=== PATIENT | female | born 1945 | race Caucasian/White ===

== ENCOUNTER 2016-12-06 10:21 | Emergency (ER) | payer OTHER ==
--- NOTE | 2016-12-06 10:47 | PD ---
HPI Chief Complaint: fever Time Seen by Provider: 10:24 Travel History International Travel<30 days: No Contact w/Intl Traveler<30days: No Traveled to known affect area: No History of Present Illness HPI The patient was seen and examined in the presence of the nurse. This patient presents to the ER for evaluation of fever. She has metastatic breast cancer diffusely spread to a variety of bony structures including ribs and spine and is currently on chemotherapy. Her last dose was 2 days ago. She woke up at 4 AM and felt warm and took her temperature and had a fever. Currently temp is 102.4. She denies cough or shortness of breath or diarrhea or vomiting or abdominal pain or skin complaints. She has no idea with the fever came from. She had a fever one month ago and took one dose of her prescribed antibiotic and quit taking it after that. Symptoms severity is moderate. Duration is 6 hours. No alleviating factors. Fever likely exacerbated by the fact she is immunocompromised on chemotherapy. PFSH Social History Alcohol Use: No Tobacco Use: No Substance Use: No Allergies-Medications (Allergen,Severity, Reaction): Coded Allergies: No Known Allergies (Unverified , 12/06/16) Reported Meds & Prescriptions Reported Meds & Active Scripts Active Zofran (Ondansetron HCl) 4 Mg Tab 4 Mg PO Q6HR PRN Reported Oxycodone (Oxycodone HCl) 5 Mg Cap 5 Mg PO Q8H PRN Omeprazole 20 Mg Tab 20 Mg PO DAILY Levothyroxine (Levothyroxine Sodium) 88 Mcg Tab 88 Mcg PO DAILY Pravastatin 10 Mg Tab 10 Mg PO DAILY Review of Systems General / Constitutional: Positive: Fever Eyes: No: Visual changes HENT: No: Headaches Cardiovascular: No: Chest Pain or Discomfort Respiratory: No: Shortness of Breath Gastrointestinal: No: Abdominal Pain Genitourinary: No: Dysuria Musculoskeletal: No: Pain Skin: No Rash Neurologic: No: Weakness Psychiatric: No: Depression Endocrine: No: Polydipsia Hematologic/Lymphatic: No: Easy Bruising Physical Exam Narrative GENERAL: Well-nourished, well-developed patient in no apparent distress. SKIN: Focused skin assessment reveals no rash and nodules. Skin is Warm and dry. HEAD: Atraumatic. Normocephalic. EYES: Pupils equal and round. No scleral icterus. No injection or drainage. ENT: No nasal bleeding or discharge. Mucous membranes pink and moist. Throat clear NECK: Trachea midline. No JVD. No meningeal signs CARDIOVASCULAR: Regular rate and rhythm. No murmur appreciated. RESPIRATORY: No accessory muscle use. Clear to auscultation. Breath sounds equal bilaterally. GASTROINTESTINAL: Abdomen soft, non-tender, nondistended. Hepatic and splenic margins not palpable. MUSCULOSKELETAL: No obvious deformities. No clubbing. No cyanosis. No edema. NEUROLOGICAL: Awake and alert. No obvious cranial nerve deficits. Motor grossly within normal limits. Normal speech. PSYCHIATRIC: Appropriate mood and affect; insight and judgment normal. Data Data Last Documented VS Vital Signs Date Time Temp Pulse Resp B/P (MAP) Pulse Ox O2 Delivery O2 Flow Rate FiO2 12/06/16 11:26 102.7 101 18 109/67 (81) 98 Room Air Orders Orders Complete Blood Count With Diff (12/06/16 10:35) Comprehensive Metabolic Panel (12/06/16 10:35) Urinalysis - C+S If Indicated (12/06/16 10:35) Blood Culture (12/06/16 10:35) Chest, Single Ap (12/06/16 10:35) Ecg Monitoring (12/06/16 10:35) Iv Access Insert/Monitor (12/06/16 10:35) Oximetry (12/06/16 10:35) Acetaminophen (Tylenol) (12/06/16 11:00) Ceftazidime Inj (Fortaz Inj) (12/06/16 11:00) Labs Laboratory Tests Test 12/06/16 10:50 White Blood Count 8.6 TH/MM3 Red Blood Count 3.53 MIL/MM3 Hemoglobin 12.1 GM/DL Hematocrit 35.3 % Mean Corpuscular Volume 100.1 FL Mean Corpuscular Hemoglobin 34.2 PG Mean Corpuscular Hemoglobin Concent 34.1 % Red Cell Distribution Width 14.8 % Platelet Count 191 TH/MM3 Mean Platelet Volume 7.3 FL Neutrophils (%) (Auto) 90.6 % Lymphocytes (%) (Auto) 5.5 % Monocytes (%) (Auto) 2.3 % Eosinophils (%) (Auto) 0.2 % Basophils (%) (Auto) 1.4 % Neutrophils # (Auto) 7.8 TH/MM3 Lymphocytes # (Auto) 0.5 TH/MM3 Monocytes # (Auto) 0.2 TH/MM3 Eosinophils # (Auto) 0.0 TH/MM3 Basophils # (Auto) 0.1 TH/MM3 CBC Comment AUTO DIFF Differential Comment AUTO DIFF CONFIRMED Urine Collection Type CLEAN CATCH Urine Color YELLOW Urine Turbidity CLEAR Urine pH 7.5 Urine Specific [place] 1.016 Urine Protein NEG mg/dL Urine Glucose (UA) NEG mg/dL Urine Ketones NEG mg/dL Urine Occult Blood TRACE Urine Nitrite NEG Urine Bilirubin NEG Urine Leukocyte Esterase NEG Urine RBC 0-3 /hpf Urine WBC 0-2 /hpf Urine Squamous Epithelial Cells 0-5 /hpf Microscopic Urinalysis Comment CULT NOT INDICATED Urine Collection Time 10:50 Blood Urea Nitrogen 16 MG/DL Creatinine 0.74 MG/DL Random Glucose 117 MG/DL Total Protein 7.5 GM/DL Albumin 3.3 GM/DL Calcium Level 9.0 MG/DL Alkaline Phosphatase 124 U/L Aspartate Amino Transf (AST/SGOT) 54 U/L Alanine Aminotransferase (ALT/SGPT) 29 U/L Total Bilirubin 0.6 MG/DL Sodium Level 133 MEQ/L Potassium Level 3.6 MEQ/L Chloride Level 96 MEQ/L Carbon Dioxide Level 28.8 MEQ/L Anion Gap 8 MEQ/L Estimat Glomerular Filtration Rate 77 ML/MIN [facility] Medical Decision Making Medical Screen Exam Complete: Yes Emergency Medical Condition: Yes Medical Record Reviewed: Yes Differential Diagnosis Neutropenia, pneumonia, UTI, flu syndrome Narrative Course I have reviewed the patient's electronic medical record.I reviewed her oncologist note from October 2016 IV placed Blood culture obtained CBC is normal with white count of 8.6, no neutropenia Metabolic profile is normal Urinalysis is clean I reviewed her chest x-ray which is normal Extended cardiac monitoring reveals sinus rhythm without ectopy Initial blood pressure normal and temp 102.7 I gave her dose of Tylenol Dose of ceftaz given On recheck the patient is feeling well and basically is asymptomatic other than fever. I reviewed with her oncologist in detail. She is stable for outpatient follow-up. He wants her to be on 5 days of Levaquin. I also wrote her some Zofran just in case. Diagnosis Primary Impression: Fever Qualified Codes: R50.9 - Fever, unspecified Additional Impression: Palliative chemotherapy underway Additional Instructions: The patient was advised to follow up with their physician and return if they worsen. Med/Other Pt SpecificInfo: Prescription(s) given Scripts Ondansetron (Zofran) 4 Mg Tab 4 MG PO Q6HR Y for NAUSEA OR VOMITING, #12 TAB 0 Refills Prov: Azar Hamlin MD 12/06/16 Disposition: 01 DISCHARGE HOME Condition: Stable Azar Hamlin MD Dec 06, 2016 10:47
[2016-12-06 10:57] VITALS: BP 159/72; PULSE 93; RESP 16; TEMP 102.7; O2SAT 98
[2016-12-06 10:59] VITALS: O2SAT 98
[2016-12-06 10:59] LABS: GLUCOSE,URINE NEG (NEG); KETONE, URINE NEG (NEG); NITRITE,URINE NEG (NEG); PH, URINE 7.5 (5.0-8.5)
[2016-12-06] MEDS ORDERED: cefTAZidime INJ 2,000 MG in SODIUM CHLORIDE 0.9% INJ 100 ML IV ONE (11:00)
[2016-12-06] MEDS ORDERED: ACETAMINOPHEN 500 MG CPLT PO ONE (11:00)
[2016-12-06 11:05] LABS: BLOOD, URINE TRACE (NEG); METHOD OF COLLECTION CLEAN CATCH
[2016-12-06 11:06] LABS: RBC, URINE 0-3 /hpf (0-3); SQUAMOUS EPITHELIAL CELL URINE 0-5 /hpf (0-5); URINE COLOR YELLOW (YELLW/STRAW); WBC, URINE 0-2 /hpf (0-5)
[2016-12-06] MEDS ORDERED: OMEP20TA PO (11:06)
[2016-12-06] MEDS ORDERED: OXYC1CAP PO (11:06)
[2016-12-06] MEDS ORDERED: LEVO88TA2 PO (11:06)
[2016-12-06] MEDS ORDERED: PRAV10TA PO (11:06)
[2016-12-06 11:07] LABS: COMMENT (UR) CULT NOT INDICATED; CULTURE IF INDICATED CULT NOT INDICATED
[2016-12-06 11:08] LABS: CHLORIDE 96 MEQ/L (98-107); POTASSIUM 3.6 MEQ/L (3.5-5.1); SODIUM (NA) 133 MEQ/L (136-145)
[2016-12-06 11:09] LABS: AUTOMATED NEUTROPHIL # 7.8 TH/MM3 (1.8-7.7); BASOPHIL # 0.1 TH/MM3 (0-0.2); BASOPHIL % 1.4 % (0.0-2.0); EOSINOPHIL % 0.2 % (0.0-4.0); HEMATOCRIT 35.3 % (35.0-46.0); LYMPH % 5.5 % (9.0-44.0); LYMPHOCYTE # 0.5 TH/MM3 (1.0-4.8); MEAN CELL VOLUME 100.1 FL (80.0-100.0); MEAN CORPUSCULAR HEMOGLOBIN 34.2 PG (27.0-34.0); MEAN CORPUSCULAR HGB CONC 34.1 % (32.0-36.0); MONO % 2.3 % (0.0-8.0); NEUT % 90.6 % (16.0-70.0); PLATELET COUNT 191 TH/MM3 (150-450); RED BLOOD COUNT 3.53 MIL/MM3 (4.00-5.30); RED CELL DISTRIBUTION WIDTH 14.8 % (11.6-17.2); WHITE BLOOD COUNT 8.6 TH/MM3 (4.0-11.0)
[2016-12-06 11:10] LABS: HEMO FLAGS AUTO DIFF
[2016-12-06 11:11] LABS: ANION GAP 8 MEQ/L (5-15); BICARBONATE 28.8 MEQ/L (21.0-32.0)
[2016-12-06 11:12] LABS: BLOOD UREA NITROGEN 16 MG/DL (7-18)
[2016-12-06 11:14] LABS: ALT (GPT) 29 U/L (10-53); AST (GOT) 54 U/L (15-37)
[2016-12-06 11:15] LABS: GLOMERULAR FILTRATION RATE 77 ML/MIN (>89)
[2016-12-06 11:16] LABS: TOTAL BILIRUBIN ADULT 0.6 MG/DL (0.2-1.0)
[2016-12-06 11:17] LABS: ALKALINE PHOSPHATASE 124 U/L (45-117)
[2016-12-06 11:26] VITALS: BP 109/67; PULSE 101; RESP 18; TEMP 102.7; O2SAT 98
--- NOTE | 2016-12-06 11:26 | RADRPT ---
EXAM DATE/TIME: 12/06/2016 11:12 [facility] COMPARISON: No previous studies available for comparison. INDICATIONS : Fever, chest pains, today MEDICAL HISTORY : Carcinoma, breast. Carcinoma, lung. SURGICAL HISTORY : None. ENCOUNTER: Initial ACUITY: 1 day PAIN SCORE: 4/10 LOCATION: Bilateral chest FINDINGS: A single view of the chest demonstrates the lungs to be symmetrically aerated without evidence of mas s, infiltrate or effusion. The cardiomediastinal contours are unremarkable. There are degenerative c hanges in the shoulders bilaterally. There are surgical clips in the right axilla. CONCLUSION: 1. No acute cardiopulmonary findings. Erich Hodges MD on December 06, 2016 at 11:24 Board Certified Radiologist. This report was verified electronically.
[2016-12-06 11:33] LABS: SCAN/DIFF AUTO DIFF CONFIRMED
[2016-12-06] MEDS ORDERED: ZOFR4TAB PO (12:04)
[2016-12-06] MEDS ORDERED: LEVOFLOXACIN 500 MG TAB PO ONE (12:15)
[2016-12-06 12:38] VITALS: BP 108/60; PULSE 86; RESP 18; TEMP 99.6; O2SAT 98
== END 2016-12-06 12:39 | disposition home or self-care (01) ==
LOC: PHED 10:21
DX: R50.9 Fever, unspecified (principal); C50.919 Malignant neoplasm of unspecified site of unspecified female breast; C79.51 Secondary malignant neoplasm of bone; Z92.21 Personal history of antineoplastic chemotherapy
CPT/HCPCS: 71010; 80053; 81001; 85025; 87040; 96365; 99284; J0713

== ENCOUNTER 2016-12-23 06:29 | Day surgery (SDC) | payer OTHER ==
[~2016-12-23] VITALS: Ht 165.1 cm; Wt 65.5 kg
[~2016-12-23 06:29] MED LIST: LEVO88TA2 PO; OMEP20TA PO; OXYC1CAP PO; PRAV10TA PO; ZOFR4TAB PO
[2016-12-23 06:47] VITALS: BP 141/82; PULSE 88; RESP 18; TEMP 98.1; O2SAT 96
[2016-12-23] MEDS ORDERED: ZOFR4TAB PO (06:51)
[2016-12-23] MEDS ORDERED: VITA1000 PO (06:51)
[2016-12-23] MEDS ORDERED: CALC500T8 PO (06:51)
[2016-12-23] MEDS ORDERED: CYAN1TAB24 PO (06:51)
[2016-12-23] MEDS ORDERED: SODIUM CHLORIDE 0.9% 1000 ML IV SCH (07:00)
[2016-12-23] MEDS ORDERED: POVIDONE IODINE 5% (ANTISEPSIS KIT) 4 APPLICATIONS EACH NARE SCH (07:00)
[2016-12-23] MEDS ORDERED: CHLORHEXIDINE GLUCONATE 2 % 1 PACK (2 CLOTHS) TOPICAL SCH (07:00)
[2016-12-23 08:18] LABS: APTT (PATIENT) 24.8 SEC (24.3-30.1); PROTHROMBIN TIME - PATIENT 10.7 SEC (9.8-11.6)
[2016-12-23] MEDS ORDERED: MIDAZOLAM HCL 2 MG/2 ML VIAL ONE ×2 (08:49→09:14)
[2016-12-23] MEDS: VANCOMYCIN 1000 MG/NS 250 ML - implanted port/tunneled catheter IV SCH ×6 (09:31→10:16)
[2016-12-23] MEDS: ceFAZolin 2 GM PREMIX 50 ML - implanted port/tunneled catheter insertion IV SCH ×2 (09:31→09:32)
[2016-12-23 10:10] VITALS: BP 114/65; PULSE 58; RESP 18; TEMP 98.2; O2SAT 94
--- NOTE | 2016-12-23 10:13 | PD.RAD ---
Post Procedure Progress Note Pre Procedure Diagnosis: (1) Metastatic breast cancer Post Procedure Diagnosis: (1) Metastatic breast cancer Procedure Date: Dec 23, 2016 Supervising Radiologist: Portillo Blake Proceduralist/Assist: Brina Martin RT(R), RT Huma(R) Anesthesia: Local, Analgesia, Conscious Sedation Plan of Activity Patient to Unit: ROPU Patient Condition: Good See PACS Report for procedural detail/treatment Central Venous Access Device Procedure 1 Right Internal Jugular Infusaport Placement single lumen Bahamian: 8 Portillo Blake MD Dec 23, 2016 10:13
[2016-12-23] MEDS ORDERED: SODIUM CHLORIDE 0.9% FLUSH 10 ML FLUSH IVF PRN (10:15)
[2016-12-23 10:25] VITALS: BP 117/71; PULSE 68; RESP 18; O2SAT 94
--- NOTE | 2016-12-23 10:31 | RADRPT ---
EXAM DATE/TIME: 12/23/2016 09:15 [facility] COMPARISON: No previous studies available for comparison. INDICATIONS : Patient with history of metastatic breast cancer in need of [id number]. MEDICAL HISTORY : HTN, HLD, Metastatic ductal carcinoma of the breast with extensive bony metastases, GERD, Hypothyroid ism, Osteonecrosis of anterior portion of mandible, Radiation therapy SURGICAL HISTORY : Right breast lumpectomy, Right axillary lymph node dissection, Right mastectomy, Biopsy of spine, Par tial thyroidectomy, Colonoscopy, Cholecystectomy ENCOUNTER: Initial ACUITY: >1 year PAIN SCORE: 0/10 FLUORO TIME: 3.1 minutes IMAGE SERIES: 1 SEDATION TIME: 45 minutes ACCESS: Left internal jugular vein SEDATION: 1.) 3.5 mg midazolam (Versed) IV 2.) 175 mcg fentanyl (Sublimaze) IV Prophylactic antibiotics were administered with appropriate pre-procedure timing. Vancomycin within 2 hours of procedure, Ancef (or alternative) within 1 hour of procedure. DEVICE: 1. 8 Russian single lumen Smart power port with vortex PROCEDURE : 1. Continuous pulse oximetry and EKG monitoring. 2. Intravenous conscious sedation. 3. Ultrasound guidance for venous access. 4. Fluoroscopic guided implantable central venous port placement. The patient was placed supine. The neck was prepped in sterile fashion. Full sterile technique was u sed, including cap, mask, sterile gloves and gown, and a large sterile sheet. Hand hygiene and 2% ch lorhexidine Betadine was utilized per protocol for cutaneous antisepsis with appropriate dry time for site. Sterile gel and sterile probe cover were utilized for ultrasound guidance. The skin and sub cutaneous tissues were infiltrated with local anesthetic solution. Under direct ultrasound guidance, central venous access was accomplished in the targeted vessel. The ultrasound images depicting access guidance were stored and saved to PACS for permanent record. A s ubcutaneous pocket was created using blunt dissection. The port was introduced to the pocket. The c atheter tubing was fed through a subcutaneous tunnel to the venotomy site. The catheter tubing was c ut to a suitable length and then was introduced through a valved Peel-Away sheath and positioned with catheter tubing tip at the cavo-atrial junction level. The pocket incision was closed with subcutic ular Vicryl suture. Steri-Strips were applied. The port was flushed and locked with heparin solutio n per protocol. Sterile dressing was applied to the site. The patient tolerated the procedure well. Conscious sedation was performed with the prescribed dosages and duration as above in the presence of an independent trained radiology nurse to assist in the monitoring of the patient. EKG and oximetry remained stable throughout the procedure. The patient tolerated the procedure well and there were no complications. The patient was sent to post anesthesia recovery in stable condition. CONCLUSION: Uncomplicated ultrasound and fluoroscopic guided implanted central venous port catheter placement as described in detail above. An 8 Russian Power port was placed. Portillo Blake MD on December 23, 2016 at 10:29 Board Certified Radiologist. This report was verified electronically.
[2016-12-23 10:55] VITALS: BP 120/65; PULSE 67; RESP 18; O2SAT 95
[2016-12-23 11:25] VITALS: BP 120/64; PULSE 63; RESP 16; O2SAT 95
[2016-12-23 11:55] VITALS: BP 117/71; PULSE 65; RESP 18; O2SAT 96
== END 2016-12-23 12:50 | disposition home or self-care (01) ==
LOC: HROP 06:29 → HRIP 06:32 → HROP 12:50
PROVIDERS: ATTEND Internal Medicine Hematology & Oncology
DX: Z45.2 Encounter for adjustment and management of vascular access device (principal); C79.51 Secondary malignant neoplasm of bone; I10 Essential (primary) hypertension; E78.5 Hyperlipidemia, unspecified; E03.9 Hypothyroidism, unspecified; K21.9 Gastro-esophageal reflux disease without esophagitis; Z85.3 Personal history of malignant neoplasm of breast
CPT/HCPCS: 36561; 76937; 77001; 85610; 85730; 99152; 99153; C1769; C1788; C1887; J0690; J1642; J2250; J3010; J3370; J7030; J7050

== ENCOUNTER 2017-04-30 14:49 | Inpatient (IN) | payer OTHER, MEDICAID, MEDICARE ==
[2017-04-30] VITALS (10 sets, daily range): BP systolic 144–171; BP diastolic 67–98; PULSE 67–91; RESP 16–20; TEMP 98.6–98.7; O2SAT 73–99
[~2017-04-30] VITALS: Ht 162.6 cm; Wt 67.2 kg
[~2017-04-30 14:49] MED LIST changes: +CALC500T8 PO; +CYAN1TAB24 PO; -OMEP20TA PO; +OMEP20TA93 PO; +VITA1000 PO
--- NOTE | 2017-04-30 15:55 | PD ---
HPI Chief Complaint: Fall Time Seen by Provider: 15:49 Travel History International Travel<30 days: No Contact w/Intl Traveler<30days: No Traveled to known affect area: No History of Present Illness HPI 71-year-old female patient with history of breast cancer with metastases to the bone, currently on chemotherapy with Dr. Thompson, here because she had finished chemotherapy, went to urinate in the bathroom, got up and fell onto the right knee, hit her head. She had no loss of consciousness. She denies any dizziness , chest pains, shortness of breath, or other issues. She states that she thinks she tripped on the linoleum, does not think that this was a syncopal episode or dizziness and fall. She denies other injuries. Modifying Factors: None Associated Signs & Symptoms: Trip and fall, head injury, right knee injury Risk Factors: Elderly PFSH Past Medical History Cancer: Yes (BREAST CA WITH BONE METS) Cardiovascular Problems: No High Cholesterol: Yes Diabetes: No Endocrine: Yes (thyroid) Genitourinary: No Hepatitis: No Hiatal Hernia: No Hypertension: Yes Immune Disorder: No Musculoskeletal: No Neurologic: No Psychiatric: No Reproductive: No Respiratory: No Thyroid Disease: Yes Past Surgical History Abdominal Surgery: Yes AICD: No Cardiac Surgery: No Ear Surgery: No Endocrine Surgery: Yes (thyroid) Eye Surgery: No Genitourinary Surgery: No Gynecologic Surgery: No Joint Replacement: No Oral Surgery: No (jaw) Pacemaker: No Thoracic Surgery: No (mastectomy right) Other Surgery: Yes (RIGHT MASTECTOMY) Social History Alcohol Use: No Tobacco Use: No Substance Use: No Allergies-Medications (Allergen,Severity, Reaction): Coded Allergies: No Known Allergies (Unverified Adverse Reaction, Unknown, 04/30/17) Reported Meds & Prescriptions Reported Meds & Active Scripts Active Reported Gabapentin 100 Mg Cap 100 Mg PO HS Zofran (Ondansetron HCl) 4 Mg Tab 4 Mg PO Q8HR PRN Calcium Oyster Shell (Calcium Carbonate) 1,250 Mg Tab 1,250 Mg PO DAILY 1,250 mg calcium carbonate (500 mg elemental calcium) B12 (Cyanocobalamin) 1,000 Mcg Tab 1,000 Mcg PO DAILY Vitamin D-1000 (Cholecalciferol) 1,000 Unit Tab 4,000 Units PO DAILY Oxycodone (Oxycodone HCl) 5 Mg Cap 5 Mg PO Q8H PRN Omeprazole 20 Mg Tab 20 Mg PO DAILY Levothyroxine (Levothyroxine Sodium) 88 Mcg Tab 88 Mcg PO DAILY Pravastatin 10 Mg Tab 10 Mg PO DAILY Review of Systems Except as stated in HPI: all other systems reviewed are Neg Physical Exam Narrative GENERAL: Pleasant elderly female patient currently and mild distress. Awake and oriented 3. SKIN: Focused skin assessment warm/dry. HEAD: Notable for ecchymosis and edema over the right forehead. Normocephalic. EYES: Pupils equal and round. No scleral icterus. No injection or drainage. ENT: No nasal bleeding or discharge. Mucous membranes pink and moist. NECK: Trachea midline. No JVD. Supple. No midline C-spine tenderness. CARDIOVASCULAR: Regular rate and rhythm. No murmur appreciated. RESPIRATORY: No accessory muscle use. Clear to auscultation. Breath sounds equal bilaterally. GASTROINTESTINAL: Abdomen soft, non-tender, nondistended. Hepatic and splenic margins not palpable. Pelvis: Stable and nontender to palpation. EXTREMITIES: No clubbing, cyanosis, or edema. No joint tenderness, effusion, or edema noted. There is mild edema over the right anterior knee with no deformities. MUSCULOSKELETAL: No obvious deformities. No clubbing. No cyanosis. No edema. NEUROLOGICAL: Awake and alert. No obvious cranial nerve deficits. Motor grossly within normal limits. Normal speech. PSYCHIATRIC: Appropriate mood and affect; insight and judgment normal. Data Data Last Documented VS Vital Signs Date Time Temp Pulse Resp B/P (MAP) Pulse Ox O2 Delivery O2 Flow Rate FiO2 04/30/17 18:40 72 16 144/71 (95) 98 Room Air 04/30/17 15:[address] Brain W/O Iv Contrast(Rout) (04/30/17 15:49) Knee, Complete (4vws) (04/30/17 15:49) Tibia/Fibula (Ap/Lat) (04/30/17 15:49) Electrocardiogram (04/30/17 16:34) Complete Blood Count With Diff (04/30/17 16:34) Comprehensive Metabolic Panel (04/30/17 16:34) Ckmb (Isoenzyme) Profile (04/30/17 16:34) Troponin I (04/30/17 16:34) Act Partial Throm Time (Ptt) (04/30/17 16:34) Prothrombin Time / Inr (Pt) (04/30/17 16:34) Urinalysis - C+S If Indicated (04/30/17 16:34) Chest, Single Ap (04/30/17 16:34) Ecg Monitoring (04/30/17 16:34) Iv Access Insert/Monitor (04/30/17 16:34) Oximetry (04/30/17 16:34) Sodium Chloride 0.9% Flush (Ns Flush) (04/30/17 16:45) Admit To Inpatient (04/30/17 ) Vital Signs (Adult) Q4H (04/30/17 18:49) Activity Oob With Assistance (04/30/17 18:49) Product Consultant / Telemetry .CONTINUOUS (04/30/17 18:49) Diet Heart Healthy (04/30/17 Dinner) Sodium Chloride 0.9% Flush (Ns Flush) (04/30/17 19:00) Sodium Chloride 0.9% Flush (Ns Flush) (04/30/17 21:00) Acetaminophen (Tylenol) (04/30/17 19:00) Ondansetron Inj (Zofran Inj) (04/30/17 19:00) Comprehensive Metabolic Panel (05/01/17 06:00) Complete Blood Count With Diff (05/01/17 06:00) Resp Oxygen Alexis C Titrat 1-4 L (04/30/17 ) Scd Bilateral/Knee High [place].BID (04/30/17 18:49) Naloxone Inj (Narcan Inj) (04/30/17 19:00) Docusate Sodium-Senna (Pily-Colace) (04/30/17 21:00) Magnesium Hydroxide Liq (Milk Of Magnesi (04/30/17 19:00) Sennosides (Senokot) (04/30/17 19:00) Bisacodyl Supp (Dulcolax Supp) (04/30/17 19:00) Inpatient Certification (04/30/17 ) Consult Hematology (04/30/17 ) Admit Order (Ed Use Only) (04/30/17 18:51) Neuro Checks . ORDERED (04/30/17 18:52) Labs Laboratory Tests Test 04/30/17 17:07 04/30/17 17:39 04/30/17 18:20 White Blood Count 2.4 TH/MM3 Red Blood Count 3.49 MIL/MM3 Hemoglobin 10.9 GM/DL Hematocrit 33.8 % Mean Corpuscular Volume 97.0 FL Mean Corpuscular Hemoglobin 31.1 PG Mean Corpuscular Hemoglobin Concent 32.1 % Red Cell Distribution Width 15.6 % Platelet Count 191 TH/MM3 Mean Platelet Volume 6.3 FL Neutrophils (%) (Auto) 73.7 % Lymphocytes (%) (Auto) 20.2 % Monocytes (%) (Auto) 3.6 % Eosinophils (%) (Auto) 1.5 % Basophils (%) (Auto) 1.0 % Neutrophils # (Auto) 1.8 TH/MM3 Lymphocytes # (Auto) 0.5 TH/MM3 Monocytes # (Auto) 0.1 TH/MM3 Eosinophils # (Auto) 0.0 TH/MM3 Basophils # (Auto) 0.0 TH/MM3 CBC Comment DIFF FINAL Differential Comment Blood Urea Nitrogen 13 MG/DL Creatinine 0.61 MG/DL Random Glucose 105 MG/DL Total Protein 6.4 GM/DL Albumin 3.0 GM/DL Calcium Level 8.5 MG/DL Alkaline Phosphatase 79 U/L Aspartate Amino Transf (AST/SGOT) 26 U/L Alanine Aminotransferase (ALT/SGPT) 16 U/L Total Bilirubin 0.4 MG/DL Sodium Level 140 MEQ/L Potassium Level 3.6 MEQ/L Chloride Level 105 MEQ/L Carbon Dioxide Level 28.8 MEQ/L Anion Gap 6 MEQ/L Estimat Glomerular Filtration Rate 97 ML/MIN Total Creatine Kinase 52 U/L Troponin I 0.22 NG/ML Urine Color YELLOW Urine Turbidity CLEAR Urine pH 7.0 Urine Specific [place] 1.007 Urine Protein NEG mg/dL Urine Glucose (UA) NEG mg/dL Urine Ketones NEG mg/dL Urine Occult Blood NEG Urine Nitrite NEG Urine Bilirubin NEG Urine Leukocyte Esterase TRACE Urine WBC 0-2 /hpf Urine Squamous Epithelial Cells 0-5 /hpf Microscopic Urinalysis Comment CULT NOT INDICATED Prothrombin Time 10.5 SEC Prothromb Time International Ratio 1.0 RATIO Activated Partial Thromboplast Time 18.[address] [facility] Medical Decision Making Medical Screen Exam Complete: Yes Emergency Medical Condition: Yes Medical Record Reviewed: Yes Interpretation(s) EKG shows normal sinus rhythm at a rate of 68 bpm with a right bundle branch block pattern. No signs of acute ST elevations or depressions. Laboratory Tests Test 04/30/17 17:07 04/30/17 17:39 04/30/17 18:20 White Blood Count 2.4 TH/MM3 (4.0-11.0) Red Blood Count 3.49 MIL/MM3 (4.00-5.30) Hemoglobin 10.9 GM/DL (11.6-15.3) Hematocrit 33.8 % (35.0-46.0) Mean Platelet Volume 6.3 FL (7.0-11.0) Neutrophils (%) (Auto) 73.7 % (16.0-70.0) Lymphocytes # (Auto) 0.5 TH/MM3 (1.0-4.8) Albumin 3.0 GM/DL (3.4-5.0) Troponin I 0.22 NG/ML (0.02-0.05) Urine Leukocyte Esterase TRACE (NEG) Activated Partial Thromboplast Time 18.3 SEC (24.3-30.1) Last 24 hours Impressions Chest X-Ray 04/30/17 1634 Signed Impressions: Service Date/Time: Sunday, April 30, 2017 16:50 - CONCLUSION: No infiltrate seen. Fan Harris MD Tibia/Fibula X-Ray 04/30/17 1549 Signed Impressions: Service Date/Time: Sunday, April 30, 2017 15:51 - CONCLUSION: No evidence of recent bony injury. Fan Harris MD Knee X-Ray 04/30/17 1549 Signed Impressions: Service Date/Time: Sunday, April 30, 2017 15:51 - CONCLUSION: 1. Degenerative changes in the patellofemoral and medial compartment of the knee. 2. No evidence of recent bone injury. No radiographic evidence of the effusion. Fan Harris MD Head CT 04/30/17 1549 Signed Impressions: Service Date/Time: Sunday, April 30, 2017 17:32 - CONCLUSION: 1. Markedly abnormal appearance throughout the skull with numerous lytic lesions and multiple appearance suspicious for metastatic disease. The largest lesion in the left frontal parietal region has complete destruction of the external and internal table. 2. No acute findings in the brain. 3. Mild soft tissue swelling in the right supraorbital region. Fan Harris MD Differential Diagnosis Fall, right knee injury, head injury: Rule out intracranial injuries versus contusion versus fractures Narrative Course Vital signs are stable and initial EKG was unremarkable. Patient had an episode of V. tach in the ER and at this point, additional workup was done. CAT scan shows multiple metastases within the brain but no signs of acute intracranial hemorrhage. The metastases were not previously known. Her lab work shows elevated troponin of 0.22. She has not had any chest pains or shortness of breath. Renal functions are normal. No significant electrolyte abnormalities were identified. At this point, my plan would be to admit the patient for further evaluation especially with her fall, it is questionable whether this was a near syncopal episode rather than a fall. I have discussed the brain findings with Dr. Anderson of neurosurgery who states that this would not be a neurosurgical case and the patient with the treated with radiation and outpatient therapy most likely. Case was then discussed with [place] hospitalist Dr. Patel for admission for further treatment. Diagnosis Primary Impression: Metastatic breast cancer Additional Impressions: Elevated troponin Brain metastases Fall Admitting Information Admitting Physician Requests: Admit Zeke Lockwood MD Apr 30, 2017 15:55
--- NOTE | 2017-04-30 16:16 | RADRPT ---
EXAM DATE/TIME: 04/30/2017 15:51 [facility] COMPARISON: No previous studies available for comparison. INDICATIONS : Right proximal tibia/fibula pain post fall. MEDICAL HISTORY : Carcinoma, breast. Carcinoma, lung. GERD, Hypothyroidism, Osteonecrosis of anterior portion of m andible SURGICAL HISTORY : Biopsy of spine, Partial thyroidectomy, Colonoscopy, Cholecystectomy,Right breast lumpectomy, Right a xillary lymph node dissection, Right mastectomy ENCOUNTER: Initial ACUITY: 1 day PAIN SCORE: 6/10 LOCATION: Right proximal tibia/fibula FINDINGS: Two view examination of the right tibia and fibula demonstrates no evidence of fracture or dislocatio n. Bony mineralization is normal. The soft tissue structures are intact. CONCLUSION: No evidence of recent bony injury. Fan Harris MD on April 30, 2017 at 16:15 Board Certified Radiologist. This report was verified electronically.
--- NOTE | 2017-04-30 16:16 | RADRPT ---
EXAM DATE/TIME: 04/30/2017 15:51 [facility] COMPARISON: No previous studies available for comparison. INDICATIONS : Right patella pain post fall. MEDICAL HISTORY : Hypertension. Carcinoma, breast. Carcinoma, lung, GERD, Hypothyroidism, Osteonecrosis of anteri or portion of mandible SURGICAL HISTORY : Right breast lumpectomy, Right axillary lymph node dissection, Right mastectomy,Biopsy of spine, Part ial thyroidectomy, Colonoscopy, Cholecystectomy ENCOUNTER: Initial ACUITY: 1 day PAIN SCORE: 6/10 LOCATION: Right knee FINDINGS: Mild degenerative changes at the patellofemoral articulation and mild enthesophytes arising from the superior and inferior aspect of the patella. No fracture seen. The prepatellar soft tissues are nor mal in thickness. Suprapatellar soft tissues are normal. Multiple rounded calcific densities are pr esent anteriorly and superior to the tibial tubercle which probably represent ossification within the inferior patellar tendon. Moderate narrowing of the medial compartment of the knee with mild osteophyte formation and mild irre gularity of the articular tibial plateau. Lateral compartment is patent. CONCLUSION: 1. Degenerative changes in the patellofemoral and medial compartment of the knee. 2. No evidence of recent bone injury. No radiographic evidence of the effusion. Fan Harris MD on April 30, 2017 at 16:13 Board Certified Radiologist. This report was verified electronically.
[2017-04-30] MEDS ORDERED: SODIUM CHLORIDE 0.9% FLUSH 10 ML FLUSH IVF PRN (16:45)
[2017-04-30 17:17] LABS: AUTOMATED NEUTROPHIL # 1.8 TH/MM3 (1.8-7.7); EOSINOPHIL % 1.5 % (0.0-4.0); HEMATOCRIT 33.8 % (35.0-46.0); HEMOGLOBIN 10.9 GM/DL (11.6-15.3); LYMPH % 20.2 % (9.0-44.0); LYMPHOCYTE # 0.5 TH/MM3 (1.0-4.8); MEAN CORPUSCULAR HEMOGLOBIN 31.1 PG (27.0-34.0); MEAN CORPUSCULAR HGB CONC 32.1 % (32.0-36.0); MEAN PLATELET VOLUME 6.3 FL (7.0-11.0); MONO % 3.6 % (0.0-8.0); MONOCYTE # 0.1 TH/MM3 (0-0.9); NEUT % 73.7 % (16.0-70.0); PLATELET COUNT 191 TH/MM3 (150-450); RED BLOOD COUNT 3.49 MIL/MM3 (4.00-5.30); RED CELL DISTRIBUTION WIDTH 15.6 % (11.6-17.2); WHITE BLOOD COUNT 2.4 TH/MM3 (4.0-11.0)
--- NOTE | 2017-04-30 17:17 | RADRPT ---
EXAM DATE/TIME: 04/30/2017 16:50 [facility] COMPARISON: CHEST SINGLE AP, December 06, 2016, 11:12. INDICATIONS : Palpitations. MEDICAL HISTORY : Carcinoma, breast. Carcinoma, lung. 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 The cardiomediastinal contours are unremarkable. Stable healed fracture of the posterior right 6th rib. Hemoclips in the right axilla. [id number] catheter tip at the ca voatrial junction.. CONCLUSION: No infiltrate seen. Fan aHrris MD on April 30, 2017 at 17:14 Board Certified Radiologist. This report was verified electronically.
[2017-04-30 17:27] LABS: CHLORIDE 105 MEQ/L (98-107); SODIUM (NA) 140 MEQ/L (136-145)
[2017-04-30 17:30] LABS: CALCIUM 8.5 MG/DL (8.5-10.1)
[2017-04-30 17:31] LABS: BICARBONATE 28.8 MEQ/L (21.0-32.0); BLOOD UREA NITROGEN 13 MG/DL (7-18); GLUCOSE,RANDOM 105 MG/DL (74-106)
[2017-04-30 17:34] LABS: ALT (GPT) 16 U/L (10-53); AST (GOT) 26 U/L (15-37); CREATININE 0.61 MG/DL (0.50-1.00); GLOMERULAR FILTRATION RATE 97 ML/MIN (>89)
[2017-04-30 17:35] LABS: TOTAL BILIRUBIN ADULT 0.4 MG/DL (0.2-1.0); TOTAL PROTEIN 6.4 GM/DL (6.4-8.2)
[2017-04-30 17:37] LABS: ALKALINE PHOSPHATASE 79 U/L (45-117)
[2017-04-30 17:39] LABS: TROPONIN I 0.22 NG/ML (0.02-0.05)
--- NOTE | 2017-04-30 17:51 | RADRPT ---
EXAM DATE/TIME: 04/30/2017 17:32 [facility] COMPARISON: No previous studies available for comparison. INDICATIONS : Fall. Right frontal swelling. RADIATION DOSE: 61.14 CTDIvol (mGy) MEDICAL HISTORY : Carcinoma, breast. Metastatic, bone. SURGICAL HISTORY : Mastectomy, right. Tubal ligation.Thyroidectomy. ENCOUNTER: Initial ACUITY: 1 day PAIN SCALE: 4/10 LOCATION: Right frontal TECHNIQUE: Multiple contiguous axial images were obtained of the head. Using automated exposure control and adj ustment of the mA and/or kV according to patient size, radiation dose was kept as low as reasonably a chievable to obtain optimal diagnostic quality images. DICOM format image data is available electro nically for review and comparison. FINDINGS: CEREBRUM: The ventricles are normal for age. No evidence of midline shift, mass lesion, hemorrhage or acute in farction. No extra-axial fluid collections are seen. POSTERIOR FOSSA: The cerebellum and brainstem are intact. The 4th ventricle is midline. The cerebellopontine angle i s unremarkable. EXTRACRANIAL: Mild soft tissue swelling in the right supraorbital region without radiopaque foreign body. The visu alized portion of the orbits is intact. SKULL: Abnormal. There is a lytic and moth-eaten appearance throughout the calvarium with too numerous to c ount lytic lesions throughout the calvarium. The largest is in the left frontal region, measures 3 c m in width and causes complete disruption of the external and internal table. There is no evidence o f pneumocephalus. CONCLUSION: 1. Markedly abnormal appearance throughout the skull with numerous lytic lesions and multiple appeara nce suspicious for metastatic disease. The largest lesion in the left frontal parietal region has co mplete destruction of the external and internal table. 2. No acute findings in the brain. 3. Mild soft tissue swelling in the right supraorbital region. Fan Harris MD on April 30, 2017 at 17:47 Board Certified Radiologist. This report was verified electronically.
[2017-04-30 18:08] LABS: BILIRUBIN, URINE NEG (NEG); BLOOD, URINE NEG (NEG); GLUCOSE,URINE NEG (NEG); KETONE, URINE NEG (NEG); NITRITE,URINE NEG (NEG); URINE LEUKOCYTE ESTERASE TRACE (NEG)
[2017-04-30 18:24] LABS: URINE COLOR YELLOW (YELLW/STRAW)
[2017-04-30 18:25] LABS: SQUAMOUS EPITHELIAL CELL URINE 0-5 /hpf (0-5); WBC, URINE 0-2 /hpf (0-5)
[2017-04-30] MEDS ORDERED: GABA100C4 PO (18:54)
[2017-04-30 18:55] LABS: PROTHROMBIN TIME - PATIENT 10.5 SEC (9.8-11.6)
[2017-04-30] MEDS ORDERED: NALOXONE HCL 0.4 MG/ML AMP IV PUSH PRN (19:00)
[2017-04-30] MEDS ORDERED: MAGNESIUM HYDROXIDE SUSP 30 ML CUP PO PRN (19:00)
[2017-04-30] MEDS ORDERED: BISACODYL 10 MG SUPP RECTAL PRN (19:00)
[2017-04-30] MEDS ORDERED: SODIUM CHLORIDE 0.9% FLUSH 10 ML FLUSH IV FLUSH PRN (19:00)
[2017-04-30] MEDS ORDERED: ONDANSETRON HCL 4 MG/2 ML VIAL IVP PRN (19:00)
[2017-04-30] MEDS ORDERED: ACETAMINOPHEN 325 MG TAB PO PRN (19:00)
[2017-04-30] MEDS ORDERED: SENNOSIDES 8.6 MG TAB PO PRN (19:00)
[2017-04-30] MEDS: SODIUM CHLORIDE 0.9% FLUSH 10 ML FLUSH IV FLUSH SCH (21:00)
[2017-04-30] MEDS: DOCUSATE SODIUM 50 MG/SENNA 8.6 MG TAB PO SCH (21:00)
--- NOTE | 2017-04-30 22:56 | EKG ---
Date Performed: 04/30/2017 Time Performed: 22:34:38 PTAGE: 71 years EKG: Sinus rhythm RIGHT BUNDLE BRANCH BLOCK ABNORMAL ECG PREVIOUS TRACING : 04/30/2017 22.33 No significant change from previous tracing noted. DOCTOR: Arvin Berger Interpretating Date/Time 05/03/2017 07:06:10
--- NOTE | 2017-04-30 23:09 | EKG ---
Date Performed: 04/30/2017 Time Performed: 16:40:14 PTAGE: 71 years EKG: Sinus rhythm RIGHT BUNDLE BRANCH BLOCK ABNORMAL ECG NO PREVIOUS TRACING DOCTOR: Arvin Berger Interpretating Date/Time 04/30/2017 23:08:02
[2017-04-30 23:10] LABS: TROPONIN I 0.19 NG/ML (0.02-0.05)
[2017-05-01 04:00] VITALS: BP 146/66; PULSE 81; RESP 20; TEMP 97; O2SAT 97
[2017-05-01 07:06] LABS: AUTOMATED NEUTROPHIL # 1.4 TH/MM3 (1.8-7.7); BASOPHIL % 0.8 % (0.0-2.0); EOSINOPHIL # 0.1 TH/MM3 (0-0.4); EOSINOPHIL % 2.5 % (0.0-4.0); HEMATOCRIT 29.2 % (35.0-46.0); HEMOGLOBIN 9.9 GM/DL (11.6-15.3); LYMPH % 22.5 % (9.0-44.0); LYMPHOCYTE # 0.5 TH/MM3 (1.0-4.8); MEAN CELL VOLUME 98.2 FL (80.0-100.0); MEAN CORPUSCULAR HEMOGLOBIN 33.4 PG (27.0-34.0); MONO % 4.6 % (0.0-8.0); MONOCYTE # 0.1 TH/MM3 (0-0.9); NEUT % 69.6 % (16.0-70.0); PLATELET COUNT 147 TH/MM3 (150-450); RED BLOOD COUNT 2.98 MIL/MM3 (4.00-5.30); RED CELL DISTRIBUTION WIDTH 15.2 % (11.6-17.2); WHITE BLOOD COUNT 2.1 TH/MM3 (4.0-11.0)
[2017-05-01 07:16] LABS: CHLORIDE 106 MEQ/L (98-107); SODIUM (NA) 140 MEQ/L (136-145)
[2017-05-01 07:19] LABS: ALBUMIN 2.9 GM/DL (3.4-5.0); BICARBONATE 30.3 MEQ/L (21.0-32.0); BLOOD UREA NITROGEN 11 MG/DL (7-18); GLUCOSE,RANDOM 91 MG/DL (74-106)
[2017-05-01 07:22] LABS: ALT (GPT) 13 U/L (10-53); AST (GOT) 24 U/L (15-37)
[2017-05-01 07:23] LABS: CREATININE 0.51 MG/DL (0.50-1.00); GLOMERULAR FILTRATION RATE 119 ML/MIN (>89)
[2017-05-01 07:24] LABS: TOTAL BILIRUBIN ADULT 0.5 MG/DL (0.2-1.0)
[2017-05-01 07:25] LABS: ALKALINE PHOSPHATASE 73 U/L (45-117)
[2017-05-01 07:26] LABS: TROPONIN I 0.07 NG/ML (0.02-0.05)
[2017-05-01 08:00] VITALS: BP 130/60; PULSE 76; RESP 18; TEMP 98.6; O2SAT 98
[2017-05-01] MEDS: SODIUM CHLORIDE 0.9% FLUSH 10 ML FLUSH IV FLUSH SCH ×2 (08:09→20:31)
[2017-05-01] MEDS: DOCUSATE SODIUM 50 MG/SENNA 8.6 MG TAB PO SCH ×2 (08:10→20:31)
[2017-05-01] MEDS ORDERED: GLUCAGON 1 MG/ML VIAL OTHER PRN (09:45)
[2017-05-01] MEDS ORDERED: DEXTROSE 50% IN WATER 50 ML VIAL(D50) IV PUSH PRN (09:45)
[2017-05-01 11:01] VITALS: O2SAT 97
[2017-05-01 12:00] VITALS: BP 137/63; PULSE 79; RESP 18; TEMP 97.9; O2SAT 98
[2017-05-01] MEDS: INSULIN ASPART SUPPLEMENTAL SCALE SQ SCH ×3 (12:00→20:32)
--- NOTE | 2017-05-01 12:49 | EKG ---
Date Performed: 05/01/2017 Time Performed: 04:21:10 PTAGE: 71 years EKG: Sinus rhythm RIGHT BUNDLE BRANCH BLOCK ABNORMAL ECG PREVIOUS TRACING : 04/30/2017 22.34 No significant change from previous tracing noted. DOCTOR: Arvin Berger Interpretating Date/Time 05/01/2017 12:47:38
--- NOTE | 2017-05-01 13:05 | HHI.HP ---
[facility] Kenny Chi MD Admission Diagnosis Near syncope/fall/brain metastases/elevated troponin Diagnoses: Chief Complaint: Fall Travel History International Travel<30 Days: No Contact w/Intl Traveler <30 Da: No Traveled to Known Affected Are: No History of Present Illness 71 years old female with history of breast cancer presented to the ED after she sustained a fall while she was leaving her chemotherapy session, patient think it could be due to her shoes stuck on the tile floor, but she's not totally sure , in ED she was found to have lytic lesion on the CT of the brain which was new for her, also her troponin was elevated, patient denied any chest pain short of breath, fever chills, she does have generalized weakness and fatigue she follow up with Dr. Thompson for her breast cancer chemotherapy treatment Review of Systems All systems reviewed and was positive for what is mentioned in history of present illness otherwise negative Past Family Social History Past Medical History Breast cancer with bone metastases Hyperlipidemia Hypertension Abdominal surgery Hypothyroidism Mastectomy right Past Surgical History As above Allergies: Coded Allergies: No Known Allergies (Unverified Allergy, Unknown, 04/30/17) Family History Grandmother had bilateral breast cancer Social History Denied tobacco alcohol or illicit drug abuse Physical Exam Vital Signs Vital Signs Date Time Temp Pulse Resp B/P (MAP) Pulse Ox O2 Delivery O2 Flow Rate FiO2 05/01/17 11:01 97 05/01/17 08:00 98.6 76 18 130/60 (83) 98 05/01/17 08:00 98.6 76 18 130/60 (83) 98 05/01/17 04:00 97.0 81 20 146/66 (92) 97 04/30/17 22:29 98.7 71 20 171/74 (106) 99 04/30/17 22:00 77 18 149/74 (99) 97 04/30/17 21:00 81 18 152/77 (102) 97 Room Air 04/30/17 20:00 81 16 158/83 (108) 98 Room Air 04/30/17 19:00 73 16 158/77 (104) 98 Room Air 04/30/17 19:00 16 98 Room Air 04/30/17 18:40 72 16 144/71 (95) 98 Room Air 04/30/17 17:25 74 16 155/67 (96) 97 Room Air 04/30/17 17:15 16 97 Room Air 04/30/17 16:13 16 97 Room Air 04/30/17 16:00 67 16 170/75 (106) 97 Room Air 04/30/17 15:09 98.6 91 16 151/98 (115) 99 Physical Exam GENERAL: This is a well-nourished, well-developed patient, in no apparent distress. SKIN: No rashes, ecchymoses or lesions. Cool and dry. HEAD: Atraumatic. Normocephalic. No temporal or scalp tenderness. EYES: Pupils equal round and reactive. Extraocular motions intact. No scleral icterus. No injection or drainage. ENT: Nose without bleeding, purulent drainage or septal hematoma. Throat without erythema, tonsillar hypertrophy or exudate. Uvula midline. Airway patent. NECK: Trachea midline. No JVD or lymphadenopathy. Supple, nontender, no meningeal signs. CARDIOVASCULAR: Regular rate and rhythm without murmurs, gallops, or rubs. RESPIRATORY: Clear to auscultation. Breath sounds equal bilaterally. No wheezes , rales, or rhonchi. GASTROINTESTINAL: Abdomen soft, non-tender, nondistended. No hepato-splenomegaly , or palpable masses. No guarding. MUSCULOSKELETAL: Extremities without clubbing, cyanosis, or edema. No joint tenderness, effusion, or edema noted. No calf tenderness. Negative Homans sign bilaterally. NEUROLOGICAL: Awake and alert. Cranial nerves II through XII intact. Motor and sensory grossly within normal limits. Five out of 5 muscle strength in all muscle groups. Normal speech. Laboratory Laboratory Tests Test 04/30/17 17:07 04/30/17 17:39 04/30/17 18:20 04/30/17 22:32 White Blood Count 2.4 Red Blood Count 3.49 Hemoglobin 10.9 Hematocrit 33.8 Mean Corpuscular Volume 97.0 Mean Corpuscular Hemoglobin 31.1 Mean Corpuscular Hemoglobin Concent 32.1 Red Cell Distribution Width 15.6 Platelet Count 191 Mean Platelet Volume 6.3 Neutrophils (%) (Auto) 73.7 Lymphocytes (%) (Auto) 20.2 Monocytes (%) (Auto) 3.6 Eosinophils (%) (Auto) 1.5 Basophils (%) (Auto) 1.0 Neutrophils # (Auto) 1.8 Lymphocytes # (Auto) 0.5 Monocytes # (Auto) 0.1 Eosinophils # (Auto) 0.0 Basophils # (Auto) 0.0 CBC Comment DIFF FINAL Differential Comment Blood Urea Nitrogen 13 Creatinine 0.61 Random Glucose 105 Total Protein 6.4 Albumin 3.0 Calcium Level 8.5 Alkaline Phosphatase 79 Aspartate Amino Transf (AST/SGOT) 26 Alanine Aminotransferase (ALT/SGPT) 16 Total Bilirubin 0.4 Sodium Level 140 Potassium Level 3.6 Chloride Level 105 Carbon Dioxide Level 28.8 Anion Gap 6 Estimat Glomerular Filtration Rate 97 Total Creatine Kinase 52 51 Troponin I 0.22 0.19 Urine Color YELLOW Urine Turbidity CLEAR Urine pH 7.0 Urine Specific [place] 1.007 Urine Protein NEG Urine Glucose (UA) NEG Urine Ketones NEG Urine Occult Blood NEG Urine Nitrite NEG Urine Bilirubin NEG Urine Leukocyte Esterase TRACE Urine WBC 0-2 Urine Squamous Epithelial Cells 0-5 Microscopic Urinalysis Comment CULT NOT INDICATED Prothrombin Time 10.5 Prothromb Time International Ratio 1.0 Activated Partial Thromboplast Time 18.3 Test 05/01/17 06:00 White Blood Count 2.1 Red Blood Count 2.98 Hemoglobin 9.9 Hematocrit 29.2 Mean Corpuscular Volume 98.2 Mean Corpuscular Hemoglobin 33.4 Mean Corpuscular Hemoglobin Concent 34.0 Red Cell Distribution Width 15.2 Platelet Count 147 Mean Platelet Volume 7.0 Neutrophils (%) (Auto) 69.6 Lymphocytes (%) (Auto) 22.5 Monocytes (%) (Auto) 4.6 Eosinophils (%) (Auto) 2.5 Basophils (%) (Auto) 0.8 Neutrophils # (Auto) 1.4 Lymphocytes # (Auto) 0.5 Monocytes # (Auto) 0.1 Eosinophils # (Auto) 0.1 Basophils # (Auto) 0.0 CBC Comment DIFF FINAL Differential Comment Blood Urea Nitrogen 11 Creatinine 0.51 Random Glucose 91 Total Protein 6.0 Albumin 2.9 Calcium Level 8.0 Alkaline Phosphatase 73 Aspartate Amino Transf (AST/SGOT) 24 Alanine Aminotransferase (ALT/SGPT) 13 Total Bilirubin 0.5 Sodium Level 140 Potassium Level 3.5 Chloride Level 106 Carbon Dioxide Level 30.3 Anion Gap 4 Estimat Glomerular Filtration Rate 119 Total Creatine Kinase 42 Troponin I 0.07 Result Diagram: 05/01/17 0600 05/01/17 0600 Imaging Last Impressions Chest X-Ray 04/30/17 1634 Signed Impressions: Service Date/Time: Sunday, April 30, 2017 16:50 - CONCLUSION: No infiltrate seen. Fan Harris MD Tibia/Fibula X-Ray 04/30/17 1549 Signed Impressions: Service Date/Time: Sunday, April 30, 2017 15:51 - CONCLUSION: No evidence of recent bony injury. Fan Harris MD Knee X-Ray 04/30/17 1549 Signed Impressions: Service Date/Time: Sunday, April 30, 2017 15:51 - CONCLUSION: 1. Degenerative changes in the patellofemoral and medial compartment of the knee. 2. No evidence of recent bone injury. No radiographic evidence of the effusion. Fan Harris MD Head CT 04/30/17 1549 Signed Impressions: Service Date/Time: Sunday, April 30, 2017 17:32 - CONCLUSION: 1. Markedly abnormal appearance throughout the skull with numerous lytic lesions and multiple appearance suspicious for metastatic disease. The largest lesion in the left frontal parietal region has complete destruction of the external and internal table. 2. No acute findings in the brain. 3. Mild soft tissue swelling in the right supraorbital region. MD Christin Franco VTE Risk Assessment Caprini VTE Risk Assessment: Mod/High Risk (score >= 2) Caprini Risk Assessment Model Point Value = 1 Point Value = 2 Point Value = 3 Point Value = 5 Age 41-60 Minor surgery BMI > 25 kg/m2 Swollen legs Varicose veins or History of unexplained or recurrent spontaneous Oral contraceptives or hormone replacement Sepsis (< 1 month) Serious lung disease, including pneumonia (< 1 month) Abnormal pulmonary function Acute myocardial infarction Congestive heart failure (< 1 month) History of inflammatory bowel disease Medical patient at bed rest Age 61-74 Arthroscopic surgery Major open surgery (> 45 min) Laparoscopic surgery (> 45 min) Malignancy Confined to bed (> 72 hours) Immobilizing plaster cast Central venous access Age >= 75 History of VTE Family history of VTE Factor V Leiden Prothrombin [id number] Lupus anticoagulant Anticardiolipin antibodies Elevated serum homocysteine Heparin-induced thrombocytopenia Other congenital or acquired thrombophilia Stroke (< 1 month) Elective arthroplasty Hip, pelvis, or leg fracture Acute spinal cord injury (< 1 month) Prophylaxis Regimen Total Risk Factor Score Risk Level Prophylaxis Regimen 0-1 Low Early ambulation 2 Moderate Order ONE of the following: *Sequential Compression Device (SCD) *Heparin 5000 units SQ BID 3-4 Higher Order ONE of the following medications: *Heparin 5000 units SQ TID *Enoxaparin/Lovenox 40 mg SQ daily (WT < 150 kg, CrCl > 30 mL/min) *Enoxaparin/Lovenox 30 mg SQ daily (WT < 150 kg, CrCl > 10-29 mL/min) *Enoxaparin/Lovenox 30 mg SQ BID (WT < 150 kg, CrCl > 30 mL/min) AND/OR *Sequential Compression Device (SCD) 5 or more Highest Order ONE of the following medications: *Heparin 5000 units SQ TID (Preferred with Epidurals) *Enoxaparin/Lovenox 40 mg SQ daily (WT < 150 kg, CrCl > 30 mL/min) *Enoxaparin/Lovenox 30 mg SQ daily (WT < 150 kg, CrCl > 10-29 mL/min) *Enoxaparin/Lovenox 30 mg SQ BID (WT < 150 kg, CrCl > 30 mL/min) AND *Sequential Compression Device (SCD) Assessment and Plan Assessment and Plan 71 years old female with history of breast cancer presented with Status post fall possibly physical fall versus near syncope Increase troponin rule out non-STEMI New finding on CT had shown lytic lesions mostly metastasis Thrombocytopenia History of breast cancer on chemotherapy DVT prophylaxis with SCD and Lovenox Plan: Admit for observation Continue cycling cardiac enzyme, cardiology consulted, O2, aspirin Consult oncology for further recommendation on new finding metastasis Monitor CBC Lovenox for DVT prophylaxis Discussed Condition With Patient Javad Cullen MD May 01, 2017 13:05
[2017-05-01] MEDS: ENOXAPARIN SODIUM 40 MG/0.4 ML SYRINGE SQ SCH (15:02)
[2017-05-01 16:00] VITALS: BP 136/63; PULSE 80; RESP 18; TEMP 98.2; O2SAT 97
--- NOTE | 2017-05-01 17:36 | MB ---
cc: HANK TORRES DATE OF CONSULTATION 05/01/17 REASON FOR CONSULTATION Non-sustained ventricular tachycardia. HISTORY OF PRESENT ILLNESS The patient is a 71-year-old white female with a history of metastatic breast cancer, hyperlipidemia, hypertension and hypothyroidism who was leaving chemotherapy yesterday when she thinks she may have caught her shoe on something on the ground causing her to fall. She is unclear whether she lost consciousness. She was feeling "just fine" prior to falling. There was no disorientation at any point. Since coming into the hospital, she has had no dizziness, syncope, near-syncope or palpitations. She also denies chest pains, shortness of breath, pedal edema, paroxysmal nocturnal dyspnea or recent flu symptoms. PAST MEDICAL HISTORY 1. Right breast cancer initially diagnosed in 2007 with now extensive bony metastases. She is status post chemotherapy, radiation therapy, right mastectomy. 2. Hyperlipidemia. 3. Hypertension 4. Hypothyroidism. 5. Gastroesophageal reflux disease. MEDICATIONS Cardiac medications at home: Pravastatin 10 mg daily. ALLERGIES NO KNOWN DRUG ALLERGIES. FAMILY HISTORY There is no significant family history of early myocardial infarction. SOCIAL HISTORY The patient denies any history of alcohol or tobacco abuse. REVIEW OF SYSTEMS As in the history of present illness, otherwise, negative or noncontributory. She also denies headache, unilateral weakness, numbness, abdominal pain, melena, dyspepsia or bright red blood per rectum. PHYSICAL EXAMINATION VITAL SIGNS: Blood pressure 130/60 with a pulse of 76, respirations 18. GENERAL: She is a well-developed, well-nourished white female in no acute distress. HEENT: Jugular venous pressure is normal. Carotid pulses are 2+ bilaterally and without bruits. CHEST: Examination of the chest reveals clear lung swanson. CARDIAC: Regular rhythm and rate without S3, S4 or murmur. ABDOMEN: She has a soft, nontender abdomen. Bowel sounds are present. There is no definite hepatosplenomegaly. EXTREMITIES: No clubbing, cyanosis or edema. CARDIOLOGY STUDIES EKG shows sinus rhythm, right bundle-branch block. LABORATORY DATA WBC 2.1, hemoglobin 9.9, platelets 147, potassium 3.5, BUN 11, creatinine 0.541, troponin 0.22. IMAGING STUDIES Chest x-ray shows no acute disease. IMPRESSION A 71-year-old white female with a history of metastatic breast cancer, hyperlipidemia, hypertension, now admitted status post a fall. It is unclear whether the patient lost consciousness or simply tripped. I have been asked to see the patient for non-sustained ventricular tachycardia. Her monitoring strips have been reviewed. I see no evidence for ventricular tachycardia. There are strips with extensive artifact. The etiology of the elevated troponin level is not entirely clear. I doubt it is due to acute coronary syndrome or an arrhythmia. She has had no angina-like symptoms. EKG shows no acute ST segment or T wave changes. RECOMMENDATIONS 1. No additional cardiac workup at this time. 2. Should she definitively have unexplained syncope in the future, consider extended cardiac monitoring as an outpatient or an implantable loop recorder. 3. We will follow up as needed. MD SABINA Isaac/ /1:33 PM /5:19 PM [facility]
[2017-05-01 20:00] VITALS: BP 146/70; PULSE 88; PULSE 92; RESP 20; TEMP 97.9; O2SAT 99
[2017-05-02] VITALS: BP 122/58; PULSE 80; RESP 20; TEMP 97.7; O2SAT 97
[2017-05-02 04:00] VITALS: BP 124/59; PULSE 71; RESP 20; TEMP 97.2; O2SAT 97
[2017-05-02 08:00] VITALS: BP_SYST 139; BP_SYST 149; BP_DIAS 65; BP_DIAS 73; PULSE 76; PULSE 84; RESP 16; RESP 18; TEMP 97.8; O2SAT 93; O2SAT 97
[2017-05-02] MEDS: INSULIN ASPART SUPPLEMENTAL SCALE SQ SCH ×4 (08:00→21:00)
[2017-05-02] MEDS: DOCUSATE SODIUM 50 MG/SENNA 8.6 MG TAB PO SCH ×2 (08:41→21:04)
[2017-05-02] MEDS: SODIUM CHLORIDE 0.9% FLUSH 10 ML FLUSH IV FLUSH SCH ×2 (08:41→21:04)
--- NOTE | 2017-05-02 10:53 | MB ---
cc: JASON ZHANG DATE OF CONSULTATION: 05/01/2017. REASON FOR CONSULTATION: Patient with a history of stage IV breast cancer who was admitted to the hospital after a fall. 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 The patient sees Dr. Thompson in the oncology clinic. The patient was originally diagnosed with breast cancer in 2007. She had a T2 N0 disease. Unfortunately she developed stage IV breast cancer in 2009, and has been on some type of treatment since then. She was initially on a palliative endocrine therapy; however, had disease progression and was treated with Ibrance and Afinitor. The patient has metastatic disease to the lumbar vertebrae. She has received palliative radiation treatments. She is now being treated with single-agent Taxol. She received her last treatment on Wednesday. She had no complications during the treatment. She states that she was getting ready to go home and as she was walking out of the clinic, she fell down. She thinks that she caught her foot on the mat on the floor and tripped. The patient was brought to the emergency room. She underwent CT of the head on admission. This revealed multiple metastatic lesions in her skull. These were lytic lesions. There was a large lesion in the left frontoparietal region with complete disruption of internal and external table. There was no acute finding within the brain. There was mild soft tissue swelling in the right supraorbital region. The patient also had a chest x-ray, which did not show any acute infiltrate. The patient was found to have elevated troponin levels on admission. She is currently undergoing cardiology evaluation. The patient's CA 15-3 levels are elevated to 107. CEA is elevated to 92. The patient is currently resting comfortably in the bed. She has mild swelling about her right eyebrow. She denies any headaches. No blurry vision. No chest pain. No shortness of breath. She states that her disease has been under control. She is unaware of the metastatic disease to the skull. She states that she has not had any brain imaging for quite some time. REVIEW OF SYSTEMS: A comprehensive review of systems was completed, which is negative except as described in the history of present illness. PAST MEDICAL HISTORY: 1. Stage IV breast cancer with vertebral metastasis. 2. Hyperlipidemia. 3. Hypertension. 4. Hypothyroidism. PAST SURGICAL HISTORY: 1. History of right-sided mastectomy. MEDICATIONS: 1. Lovenox 40 milligrams subcutaneous daily. 2. Senna. 3. Docusate. 4. Roxicodone 5 milligrams p.o. q. 4 hours PRN. 5. Tylenol 650 one tablet p.o. q. 4 hours PRN. 6. Zofran 4 milligrams IV q. 6 hours PRN. 7. Milk of magnesia. 8. Senna 17.2 milligrams p.o. q. 12 hours PRN. ALLERGIES: SHE DOES NOT HAVE ANY KNOWN ALLERGIES. FAMILY HISTORY: Family history was reviewed and is noncontributory to this admission. SOCIAL HISTORY: She does not smoke cigarettes. No alcohol abuse. No illicit drug use. PHYSICAL EXAMINATION: VITAL SIGNS: Blood pressure is 136/63, pulse is in the 80s, temperature is 98.2, 02 saturations are 97% on room air. GENERAL: An elderly female in no apparent distress. HEAD, EYES, EARS, NOSE, THROAT: Pupils are equal, round and reactive to light. Extraocular muscles intact. No oral thrush. No oral lesions. There is some soft tissue swelling above the right eyebrow of the forehead area. NECK: The neck is supple. No jugular venous distention. No lymphadenopathy. CARDIAC: S1-S2. Regular rate and rhythm. CHEST: Clear to auscultation bilaterally. ABDOMEN: The abdomen is soft, nontender and nondistended. Bowel sounds are present. EXTREMITIES: No edema, erythema or cyanosis. SKIN: Without any petechiae, lesions or bruises. NEUROLOGIC: No focal deficit. PSYCHIATRIC: Mood and affect are appropriate. IMAGING STUDIES: CT of the head was reviewed and discussed in the history of present illness. Chest x-ray was also reviewed. ASSESSMENT AND PLAN: This is a 71-year-old female who has a past medical history of stage IV breast cancer with vertebral metastasis. She has undergone multiple lines of treatment. She was initially treated with endocrine therapy in 2009. She was then treated with Faslodex followed by Afinitor and exemestane. She was also on Xeloda followed by single-agent exemestane. She is now being treated with single agent Taxol. She presents to the emergency room with a syncopal event and a fall. 1. Pre-syncope and fall. The patient does not remember the chain of events clearly but she does think that she may have tripped on the rug on the floor and fell down. She does not have any headaches. No blurry vision. No chest pain. No shortness of breath. CT of the head was reviewed. She did hit her head on the ground. She was found to have multiple metastatic lesions in her skull. These are lytic lesions. It is unclear whether these lesions are new or if they were present before. On the CT scan, there is a large lesion in the left frontoparietal area which shows extensive destruction. There is some mild tissue swelling in the right supraorbital region. I would recommend an MRI of the brain with and without contrast. Possible neurosurgical evaluation depending on the results of the MRI 2. History of stage IV breast cancer currently being managed by Dr. Thompson, in the outpatient setting. 3. Troponin elevation. Cardiology evaluation is ongoing. 4. Normocytic anemia with a hemoglobin of 9.9. Likely there is some degree of dilutional anemia post hospital admission. We will obtain anemia studies, obtain a stool hemoccult. Thank you for allowing me to participate in the care of this patient. The oncology team will continue to follow this patient along. MD RO Lester/JYOTI /10:14 AM /10:33 AM [facility]
[2017-05-02 12:00] VITALS: BP 130/66; PULSE 76; RESP 16; TEMP 97.6; O2SAT 96
[2017-05-02] MEDS ORDERED: GADODIAMIDE PF 287 MG/ML 5 ML VIAL (for RAD MRI) IVCONTRAST ONE (12:30)
--- NOTE | 2017-05-02 12:58 | RADRPT ---
EXAM DATE/TIME: 05/02/2017 12:24 [place] COMPARISON: CT BRAIN W/O CONTRAST, April 30, 2017, 17:32. INDICATIONS : Metastatic disease. Fall, head trauma. CONTRAST: 13 cc Omniscan (gadodiamide) IV MEDICAL HISTORY : Metastatic, bone. Carcinoma, breast. SURGICAL HISTORY : Tubal ligation. Mastectomy, bilateral. Thyroidectomy. Cholecystectomy. ENCOUNTER: Initial ACUITY: 1 day PAIN SCORE: 0/10 LOCATION: cranial TECHNIQUE: Multiplanar, multisequence MRI of the brain was performed both prior to and following the administrat ion of paramagnetic contrast. FINDINGS: CEREBRUM: The ventricles are normal for age. No evidence of midline shift, mass lesion, hemorrhage or acute in farction. No extraaxial fluid collections are seen. The pituitary gland and suprasellar cistern are normal in configuration. WHITE MATTER: No significant signal abnormalities are seen in the white matter. POSTERIOR FOSSA: The cerebellum and brainstem are intact. The 4th ventricle is midline. The cerebellopontine angle is unremarkable. The cerebellar tonsils are normal in position. DIFFUSION IMAGING: No focal areas of restricted diffusion are seen. No evidence of acute infarction. EXTRACRANIAL: There are numerous bone lesions seen throughout the skull. These enhance. Similar-appearing lesions a re seen at the cervical spine. POST-CONTRAST: No abnormal areas of parenchymal or dural enhancement. No evidence of blood-brain barrier breakdown. CONCLUSION: Widespread bone lesions throughout the skull and in the upper cervical spine concerning for widesprea d metastatic disease. Rubén Vasquez MD on May 02, 2017 at 12:49 Board Certified Radiologist. This report was verified electronically.
--- NOTE | 2017-05-02 13:21 | HHI.PR ---
Subjective Remarks Resting comfortably in bed No event overnight Denied chest and or short of breath No fever or chills Objective Vitals Vital Signs Date Time Temp Pulse Resp B/P (MAP) Pulse Ox O2 Delivery O2 Flow Rate FiO2 05/02/17 12:00 97.6 76 16 130/66 (87) 96 05/02/17 09:41 20 05/02/17 08:00 97.8 76 16 139/65 (89) 97 05/02/17 04:00 97.2 71 20 124/59 (80) 97 05/02/17 00:00 97.7 80 20 122/58 (79) 97 05/01/17 20:00 97.9 88 20 146/70 (95) 99 05/01/17 20:00 92 05/01/17 20:00 99 21 05/01/17 16:00 98.2 80 18 136/63 (87) 97 I/O 05/01/17 05/01/17 05/01/17 05/02/17 05/02/17 05/02/17 07:00 15:00 23:00 07:00 15:00 23:00 Intake Total 0 ml 360 ml 360 ml 240 ml Balance 0 ml 360 ml 360 ml 240 ml Intake Oral 0 ml 360 ml 360 ml 240 ml # Voids 2 1 2 2 Result Diagram: 05/01/17 0600 05/01/17 0600 Objective Remarks GENERAL: This is a well-nourished, well-developed patient, in no apparent distress. SKIN: No rashes, ecchymoses or lesions. Cool and dry. HEAD: Atraumatic. Normocephalic. No temporal or scalp tenderness. EYES: Pupils equal round and reactive. Extraocular motions intact. No scleral icterus. No injection or drainage. ENT: Nose without bleeding, purulent drainage or septal hematoma. Throat without erythema, tonsillar hypertrophy or exudate. Uvula midline. Airway patent. NECK: Trachea midline. No JVD or lymphadenopathy. Supple, nontender, no meningeal signs. CARDIOVASCULAR: Regular rate and rhythm without murmurs, gallops, or rubs. RESPIRATORY: Clear to auscultation. Breath sounds equal bilaterally. No wheezes , rales, or rhonchi. GASTROINTESTINAL: Abdomen soft, non-tender, nondistended. No hepato-splenomegaly , or palpable masses. No guarding. MUSCULOSKELETAL: Extremities without clubbing, cyanosis, or edema. No joint tenderness, effusion, or edema noted. No calf tenderness. Negative Homans sign bilaterally. NEUROLOGICAL: Awake and alert. Cranial nerves II through XII intact. Motor and sensory grossly within normal limits. Five out of 5 muscle strength in all muscle groups. Normal speech. A/P Assessment and Plan 71 years old female with history of breast cancer presented with Status post fall possibly physical fall versus near syncope Increase troponin rule out non-STEMI New finding on CT had shown lytic lesions mostly metastasis Thrombocytopenia History of breast cancer on chemotherapy DVT prophylaxis with SCD and Lovenox Plan: Full set of cardiac enzyme, appreciated cardiology consultation recommended no further workup Appreciate oncology consultation recommended MRI of the brain and neurology consultation to address the neuro affect of the bone destruction Monitor CBC Lovenox for DVT prophylaxis Discharge Planning When cleared by oncology Javad Cullen MD May 02, 2017 13:20
[2017-05-02] MEDS: ENOXAPARIN SODIUM 40 MG/0.4 ML SYRINGE SQ SCH (15:06)
[2017-05-02 16:00] VITALS: BP 125/66; PULSE 77; RESP 16; TEMP 97; O2SAT 98
[2017-05-02 20:00] VITALS: BP 147/66; PULSE 74; RESP 18; TEMP 98.7; O2SAT 97
[2017-05-02] MEDS ORDERED: SODIUM CHLORIDE 0.9% FLUSH 10 ML FLUSH IV FLUSH PRN (20:45)
[2017-05-02] MEDS ORDERED: PICC HIT (ADULT) Q8H NS Lock Flush IV FLUSH PRN (20:45)
[2017-05-02] MEDS ORDERED: PICC HIT (ADULT) PRN NS Lock Flush IV FLUSH (20:45)
[2017-05-02 21:12] LABS: IRON (FE) 158 MCG/DL (50-170)
[2017-05-02 21:36] LABS: % SATURATION IRON PROFILE 69.7 % (20-50); FERRITIN 111 NG/ML (8-252); TOTAL IRON BINDING CAPACITY 227 MCG/DL (250-450)
[2017-05-02] MEDS ORDERED: GABAPENTIN 100 MG CAP PO SCH (22:00)
[2017-05-03] VITALS: BP 130/61; PULSE 79; RESP 20; TEMP 98; O2SAT 98
[2017-05-03 04:00] VITALS: BP 109/57; PULSE 74; RESP 20; TEMP 97.7; O2SAT 97
[2017-05-03] MEDS: DOCUSATE SODIUM 50 MG/SENNA 8.6 MG TAB PO SCH (08:13)
[2017-05-03 08:30] VITALS: BP 135/76; PULSE 75; RESP 16; TEMP 97.9; O2SAT 97
--- NOTE | 2017-05-03 08:52 | HHI.PR ---
Subjective Remarks 71 years old female with history of breast cancer presented to the ED after she sustained a fall while she was leaving her chemotherapy session, patient think it could be due to her shoes stuck on the tile floor, but she's not totally sure , in ED she was found to have lytic lesion on the CT of the brain which was new for her, also her troponin was elevated, patient denied any chest pain short of breath, fever chills, she does have generalized weakness and fatigue she follow up with Dr. Thompson for her breast cancer chemotherapy treatment 05-03 Resting comfortably in bed No event overnight Denied chest and or short of breath No fever or chills 05-04 NO NEW COMPLAINTS DW ONCOLOGY WILL DC MRIS AND DC TO HOME TODAY [facility] SHE STATES THAT IS WHERE THEY DISCOVERED HER STAGE 4 BREAST CANCER REOCCURRENCE DC TO HOME TODAY Objective Vitals Vital Signs Date Time Temp Pulse Resp B/P (MAP) Pulse Ox O2 Delivery O2 Flow Rate FiO2 05/03/17 04:00 97.7 74 20 109/57 (74) 97 05/03/17 00:00 98.0 79 20 130/61 (84) 98 05/02/17 20:00 98.7 74 18 147/66 (93) 97 05/02/17 16:00 97.0 77 16 125/66 (85) 98 05/02/17 12:00 97.6 76 16 130/66 (87) 96 05/02/17 09:41 20 I/O 05/02/17 05/02/17 05/02/17 05/03/17 05/03/17 05/03/17 07:00 15:00 23:00 07:00 15:00 23:00 Intake Total 240 ml 480 ml 240 ml Output Total 1 ml Balance 240 ml 479 ml 240 ml Intake Oral 240 ml 480 ml 240 ml Output Stool Total 1 ml # Voids 2 3 Result Diagram: 05/01/17 0600 05/01/17 0600 Other Results Laboratory Tests Test 04/30/17 17:07 04/30/17 17:39 04/30/17 18:20 04/30/17 22:32 White Blood Count 2.4 TH/MM3 Red Blood Count 3.49 MIL/MM3 Hemoglobin 10.9 GM/DL Hematocrit 33.8 % Mean Corpuscular Volume 97.0 FL Mean Corpuscular Hemoglobin 31.1 PG Mean Corpuscular Hemoglobin Concent 32.1 % Red Cell Distribution Width 15.6 % Platelet Count 191 TH/MM3 Mean Platelet Volume 6.3 FL Neutrophils (%) (Auto) 73.7 % Lymphocytes (%) (Auto) 20.2 % Monocytes (%) (Auto) 3.6 % Eosinophils (%) (Auto) 1.5 % Basophils (%) (Auto) 1.0 % Neutrophils # (Auto) 1.8 TH/MM3 Lymphocytes # (Auto) 0.5 TH/MM3 Monocytes # (Auto) 0.1 TH/MM3 Eosinophils # (Auto) 0.0 TH/MM3 Basophils # (Auto) 0.0 TH/MM3 CBC Comment DIFF FINAL Differential Comment Blood Urea Nitrogen 13 MG/DL Creatinine 0.61 MG/DL Random Glucose 105 MG/DL Total Protein 6.4 GM/DL Albumin 3.0 GM/DL Calcium Level 8.5 MG/DL Alkaline Phosphatase 79 U/L Aspartate Amino Transf (AST/SGOT) 26 U/L Alanine Aminotransferase (ALT/SGPT) 16 U/L Total Bilirubin 0.4 MG/DL Sodium Level 140 MEQ/L Potassium Level 3.6 MEQ/L Chloride Level 105 MEQ/L Carbon Dioxide Level 28.8 MEQ/L Anion Gap 6 MEQ/L Estimat Glomerular Filtration Rate 97 ML/MIN Total Creatine Kinase 52 U/L 51 U/L Troponin I 0.22 NG/ML 0.19 NG/ML Urine Color YELLOW Urine Turbidity CLEAR Urine pH 7.0 Urine Specific [place] 1.007 Urine Protein NEG mg/dL Urine Glucose (UA) NEG mg/dL Urine Ketones NEG mg/dL Urine Occult Blood NEG Urine Nitrite NEG Urine Bilirubin NEG Urine Leukocyte Esterase TRACE Urine WBC 0-2 /hpf Urine Squamous Epithelial Cells 0-5 /hpf Microscopic Urinalysis Comment CULT NOT INDICATED Prothrombin Time 10.5 SEC Prothromb Time International Ratio 1.0 RATIO Activated Partial Thromboplast Time 18.3 SEC Test 05/01/17 06:00 05/02/17 10:52 White Blood Count 2.1 TH/MM3 Red Blood Count 2.98 MIL/MM3 Hemoglobin 9.9 GM/DL Hematocrit 29.2 % Mean Corpuscular Volume 98.2 FL Mean Corpuscular Hemoglobin 33.4 PG Mean Corpuscular Hemoglobin Concent 34.0 % Red Cell Distribution Width 15.2 % Platelet Count 147 TH/MM3 Mean Platelet Volume 7.0 FL Neutrophils (%) (Auto) 69.6 % Lymphocytes (%) (Auto) 22.5 % Monocytes (%) (Auto) 4.6 % Eosinophils (%) (Auto) 2.5 % Basophils (%) (Auto) 0.8 % Neutrophils # (Auto) 1.4 TH/MM3 Lymphocytes # (Auto) 0.5 TH/MM3 Monocytes # (Auto) 0.1 TH/MM3 Eosinophils # (Auto) 0.1 TH/MM3 Basophils # (Auto) 0.0 TH/MM3 CBC Comment DIFF FINAL Differential Comment Blood Urea Nitrogen 11 MG/DL Creatinine 0.51 MG/DL Random Glucose 91 MG/DL Total Protein 6.0 GM/DL Albumin 2.9 GM/DL Calcium Level 8.0 MG/DL Alkaline Phosphatase 73 U/L Aspartate Amino Transf (AST/SGOT) 24 U/L Alanine Aminotransferase (ALT/SGPT) 13 U/L Total Bilirubin 0.5 MG/DL Sodium Level 140 MEQ/L Potassium Level 3.5 MEQ/L Chloride Level 106 MEQ/L Carbon Dioxide Level 30.3 MEQ/L Anion Gap 4 MEQ/L Estimat Glomerular Filtration Rate 119 ML/MIN Total Creatine Kinase 42 U/L Troponin I 0.07 NG/ML Iron Level 158 MCG/DL Total Iron Binding Capacity 227 MCG/DL Percent Iron Saturation 69.7 % Ferritin 111 NG/ML Vitamin B12 Level 1726 PG/ML Imaging Last Impressions Brain MRI 05/02/17 0000 Signed Impressions: Service Date/Time: Tuesday, May 02, 2017 12:24 - CONCLUSION: Widespread bone lesions throughout the skull and in the upper cervical spine concerning for widespread metastatic disease. Rubén Vasquez MD Chest X-Ray 04/30/17 1634 Signed Impressions: Service Date/Time: Sunday, April 30, 2017 16:50 - CONCLUSION: No infiltrate seen. Fan Harris MD Tibia/Fibula X-Ray 04/30/17 9218 Signed Impressions: Service Date/Time: Sunday, April 30, 2017 15:51 - CONCLUSION: No evidence of recent bony injury. Fan Harris MD Knee X-Ray 04/30/17 4500 Signed Impressions: Service Date/Time: Sunday, April 30, 2017 15:51 - CONCLUSION: 1. Degenerative changes in the patellofemoral and medial compartment of the knee. 2. No evidence of recent bone injury. No radiographic evidence of the effusion. Fan Harris MD Head CT 04/30/17 1549 Signed Impressions: Service Date/Time: Sunday, April 30, 2017 17:32 - CONCLUSION: 1. Markedly abnormal appearance throughout the skull with numerous lytic lesions and multiple appearance suspicious for metastatic disease. The largest lesion in the left frontal parietal region has complete destruction of the external and internal table. 2. No acute findings in the brain. 3. Mild soft tissue swelling in the right supraorbital region. Fan Harris MD Objective Remarks GENERAL: PATIENT IS A 71 YEAR OLD FEMALE WITH ECCHYMOSIS AROUND RIGHT EYE ORBIT SKIN: Warm and dry. HEAD: Atraumatic. Normocephalic. EYES: Pupils equal and round. No scleral icterus. No injection or drainage. EOMI ENT: No nasal bleeding or discharge. Mucous membranes pink and moist. TONGUE MIDLINE NECK: Trachea midline. No JVD. SUPPLE CARDIOVASCULAR: Regular rate and rhythm. S1, S2 NO S3 OR S4 RESPIRATORY: No accessory muscle use. Clear to auscultation. Breath sounds equal bilaterally. GASTROINTESTINAL: Abdomen soft, non-tender, nondistended. Hepatic and splenic margins not palpable. MUSCULOSKELETAL: Extremities without clubbing, cyanosis, or edema. No obvious deformities. NEUROLOGICAL: Awake and alert. No obvious cranial nerve deficits. Motor grossly within normal limits. 4 out of 5 muscle strength in the arms and legs. Normal speech. PSYCHIATRIC: Appropriate mood and affect; insight and judgment normal. Procedures none Medications and IVs Current Medications Sodium Chloride (NS Flush) 2 ml UNSCH PRN IVF FLUSH AFTER USING IV ACCESS Last administered on 05/03/17at 08:17; Start 04/30/17 at 16:45 Sodium Chloride (NS Flush) 2 ml UNSCH PRN IV FLUSH FLUSH AFTER USING IV ACCESS ; Start 04/30/17 at 19:00 Sodium Chloride (NS Flush) 2 ml BID IV FLUSH Last administered on 05/02/17at 21: 04; Start 04/30/17 at 21:00 Acetaminophen (Tylenol) 650 mg Q4H PRN PO TEMP > 100.4; Start 04/30/17 at 19:00 Ondansetron HCl (Zofran Inj) 4 mg Q6H PRN IVP NAUSEA OR VOMITING; Start at 19:00 Naloxone HCl (Narcan Inj) 0.4 mg UNSCH PRN IV PUSH SEE LABEL COMMENTS; Start at 19:00 Senna/Docusate Sodium (Pily-Colace) 1 tab BID PO Last administered on at 08:13; Start 04/30/17 at 21:00 Magnesium Hydroxide (Milk Of Magnesia Liq) 30 ml Q12H PRN PO Mild constipation ; Start 04/30/17 at 19:00 Sennosides (Senokot) 17.2 mg Q12H PRN PO Moderate constipation; Start 04/30/17 at 19:00 Bisacodyl (Dulcolax Supp) 10 mg DAILY PRN RECTAL SEVERE CONSITIPATION; Start at 19:00 Oxycodone HCl (Roxicodone) 5 mg Q4H PRN PO PAIN 3-5 Last administered on at 08:14; Start 04/30/17 at 19:45 Oxycodone HCl (Roxicodone) 10 mg Q4H PRN PO PAIN 6-10 Last administered on 05/01at 08:11; Start 04/30/17 at 19:45 Dextrose (D50w (Vial) Inj) 50 ml UNSCH PRN IV PUSH HYPOGLYCEMIA-SEE COMMENTS; Start 05/01/17 at 09:45 Glucagon (Glucagon Inj) 1 mg UNSCH PRN OTHER HYPOGLYCEMIA-SEE COMMENTS; Start 05/01/17 at 09:45 Insulin Aspart (NovoLOG SUPPLEMENTAL SCALE) 1 ACHS SLIDING SCALE SQ ; Start at 12:00 Enoxaparin Sodium (Lovenox Inj) 40 mg Q24H SQ Last administered on 05/02/17at 15 :06; Start 05/01/17 at 14:00 Gadodiamide (Omniscan Pf Inj) 13 ml STK-MED ONCE IVCONTRAST Last administered on 05/02/17at 12:30; Start 05/02/17 at 12:30; Stop 05/02/17 at 12:34; Status DC Heparin Sodium (Porcine) (Heparin Central Flush) 250 units UNSCH PRN IV FLUSH SEE PROTOCOL TABLE; Start 05/02/17 at 20:45 Heparin Sodium (Porcine) (Heparin Central Flush) 500 units UNSCH IV FLUSH ; Start 05/02/17 at 20:45 Sodium Chloride (NS Flush) 5 ml UNSCH PRN IV FLUSH SEE PROTOCOL; Start at 20:45 Sodium Chloride (NS Flush) 5 ml UNSCH PRN IV FLUSH SEE PROTOCOL; Start at 20:45; Status Cancel Sodium Chloride (NS Flush) 5 ml UNSCH PRN IV FLUSH SEE PROTOCOL TABLE; Start at 20:45; Status Cancel Gabapentin (Neurontin) 100 mg HS PO Last administered on 05/02/17at 22:40; Start 05/02/17 at 22:00 Levothyroxine Sodium (Synthroid) 88 mcg DAILY PO Last administered on at 08:13; Start 05/03/17 at 09:00 Pravastatin Sodium (Pravachol) 10 mg DAILY PO Last administered on 05/03/17at 08 :13; Start 05/03/17 at 09:00 Pantoprazole Sodium (Protonix) 20 mg DAILY PO Last administered on 05/03/17at 08 :13; Start 05/03/17 at 09:00 A/P Assessment and Plan 71 years old female with history of breast cancer presented with Status post fall possibly physical fall versus near syncope Increase troponin rule out non-STEMI--no intervention by cardiology New finding on CT had shown lytic lesions WITH metastasis to bone not brain Thrombocytopenia History of breast cancer STAGE 4 on chemotherapy DVT prophylaxis with SCD and Lovenox Plan: Full set of cardiac enzyme, appreciated cardiology consultation recommended no further workup Appreciate oncology consultation recommended MRI of the brain and neurology consultation to address the neuro affect of the bone destruction--MRI NOT REQUIRED PER ONCOLOGY Monitor CBC Lovenox for DVT prophylaxis Discharge Planning CLEARED BY ONCOLOGY DC TO HOME Discharge Planning HOPEFULLY DISCHARGE LATER TODAY Brian Panchal DO May 03, 2017 08:52
[2017-05-03] MEDS ORDERED: PRAVASTATIN SOD 10 MG TAB PO SCH (09:00)
[2017-05-03] MEDS ORDERED: LEVOTHYROXINE SODIUM 88 MCG TAB PO SCH (09:00)
[2017-05-03] MEDS ORDERED: PANTOPRAZOLE SOD 20 MG DELAYED RELEASE TAB PO SCH (09:00)
--- NOTE | 2017-05-03 09:17 | MB ---
cc: LEAH TOVAR M.D. DATE OF CONSULTATION 05/03/2017 REASON FOR CONSULTATION This is a 71-year-old seen in neurological consultation in regards to abnormal MRI with apparent bone mets. The patient was admitted because of a fall. It is not quite clear as to the reason for her fall. She was apparently walking out of the oncology clinic when she fell down and thinks that her foot was caught and she fell on her right knee. There was no loss of consciousness and no major complications from the fall. The CT head, as well as MRI of the brain showed metastatic, lytic lesions in her skull and also apparently in the cervical spine. Largest lesion on the left frontoparietal region. No intracranial abnormalities. Her history goes back to breast cancer diagnosed in 2007. In 2009, she had additional cancer recurrence. A few years ago in [place], she also had apparent disease involving the lumbar spine treated with radiation. The neurological exam was fairly benign. She is alert pleasant, and oriented. Mentally she appears intact. Ocular movements and visual swanson full. Pupils equal and reactive. She was sitting, actually was in the toilet room and she did have good strength throughout. [id number] testing was normal. Reflexes were diminished, but present at the elbows and knees, trace versus absent at the ankles and plantar responses flexor. I did not ambulate the patient. ASSESSMENT Lytic bone lesions involving the skull and cervical spine on a patient being treated for metastatic breast cancer. Previous radiation therapy to the lumbar spine was a few years ago in [place]. Apparently no prior additional spine lesions, but this is not a certain finding. She had a fall, there has been some apparent mild generalized weakness. I am going to obtain an MRI of the entire spine hopefully with and without contrast. We will reassess her after these. If there is no evidence of cord involvement, then the primary management will be through oncology services. Otherwise, we will reassess. Thank you for asking us to assist in her care. MD MARIANO Barahona/ANAY /8:31 AM /9:08 AM
--- NOTE | 2017-05-03 09:26 | PD.ONC.PN ---
Subjective Subjective Remarks Patient seen and examined, vital signs, labs, medication and imaging studies reviewed. Events of her over the weekend reviewed as well. Subjectively; the patient reports having some residual pain along the right side of her eye where she had impact on the ground at my clinic on 04/30/2017. She tells me she has been up out of bed and has ambulated with the help of walker. She is eating well and denies fevers or chills. Patient denies having difficulty breathing or chest pain. She tells me she is awaiting an MRI of the C, T and L-spine which will be done at some point today. Objective Data Date Time Temp Pulse Resp B/P (MAP) Pulse Ox O2 Delivery O2 Flow Rate FiO2 05/03/17 08:30 97.9 75 16 135/76 (95) 97 05/03/17 04:00 97.7 74 20 109/57 (74) 97 05/03/17 00:00 98.0 79 20 130/61 (84) 98 05/02/17 20:00 98.7 74 18 147/66 (93) 97 05/02/17 16:00 97.0 77 16 125/66 (85) 98 05/02/17 12:00 97.6 76 16 130/66 (87) 96 05/02/17 09:41 20 05/03/17 05/03/17 05/03/17 07:00 15:00 23:00 Intake Total 240 ml Balance 240 ml Result Diagram: 05/01/17 0600 05/01/17 0600 Laboratory Results Laboratory Tests Test 05/02/17 10:52 Iron Level 158 MCG/DL Total Iron Binding Capacity 227 MCG/DL Percent Iron Saturation 69.7 % Ferritin 111 NG/ML Vitamin B12 Level 1726 PG/ML Administered Medications Medications (Trade) Dose Ordered Sig/Brice Route PRN Reason Start Time Stop Time Status Last Admin Dose Admin Sodium Chloride (NS Flush) 2 ml UNSCH PRN IVF FLUSH AFTER USING IV ACCESS 04/30/17 16:45 05/03/17 08:17 Sodium Chloride (NS Flush) 2 ml BID IV FLUSH 04/30/17 21:00 05/02/17 21:04 Senna/Docusate Sodium (Pily-Colace) 1 tab BID PO 04/30/17 21:00 05/03/17 08:13 Oxycodone HCl (Roxicodone) 5 mg Q4H PRN PO PAIN 3-5 04/30/17 19:45 05/03/17 08:14 Oxycodone HCl (Roxicodone) 10 mg Q4H PRN PO PAIN 6-10 04/30/17 19:45 05/01/17 08:11 Enoxaparin Sodium (Lovenox Inj) 40 mg Q24H SQ 05/01/17 14:00 05/02/17 15:06 Gabapentin (Neurontin) 100 mg HS PO 05/02/17 22:00 05/02/17 22:40 Levothyroxine Sodium (Synthroid) 88 mcg DAILY PO 05/03/17 09:00 05/03/17 08:13 Pravastatin Sodium (Pravachol) 10 mg DAILY PO 05/03/17 09:00 05/03/17 08:13 Pantoprazole Sodium (Protonix) 20 mg DAILY PO 05/03/17 09:00 05/03/17 08:13 Objective Remarks GENERAL: Elderly female, sitting up in bed, has alopecia of chemotherapy, she appears to me at her baseline. SKIN: Warm and dry. HEAD: Has some edema in the right periorbital area with a resolving bruise. EYES: No scleral icterus. No injection or drainage. NECK: Supple, trachea midline. No JVD or lymphadenopathy. LYMPHATIC: No adenopathy. CARDIOVASCULAR: Regular rate and rhythm without murmurs. RESPIRATORY: Breath sounds equal bilaterally. No accessory muscle use. GASTROINTESTINAL: Abdomen soft, non-tender, nondistended. EXTREMITIES: No cyanosis, or edema. MUSCULOSKELETAL: Generally decreased muscle mass and tone. NEUROLOGICAL: No obvious focal deficit. Awake, alert, and oriented x3. PSYCHIATRIC: Appropriate mood and affect; insight and judgment normal. Assessment/Plan Assessment 71-year-old female with a diagnosis of metastatic breast carcinoma. Her disease was ER, RI positive and HER-2 nonamplified. She had progressed on multiple lines of palliative endocrine therapy and targeted agents. She is now on palliative single agent Taxol. Patient was admitted to the hospital after falling in clinic and suffering trauma to the right side for face. Plan 1. Metastatic breast carcinoma: Known extensive metastases to the axial skeleton. She denies areas of worsening pain. She denies new neurologic deficits. She tells me she feels her foot just got caught on the ground because she was wearing rubber soled slippers. Feels much improved today. In fact she feels at her baseline. She would like to go home if that is a reasonable thing to do. Recommendations: Cleared for discharge from oncology standpoint. I would recommend canceling this MRI scans of the cervical, thoracic and lumbar spine given her lack of symptoms at this point. I will be performing routine restaging imaging scans in the outpatient going forward to assess for response to systemic therapy. Discussed plan for discharge with hospitalist on service today. Luis Enrique Thompson MD May 03, 2017 09:26
[2017-05-03] MEDS ORDERED: WALKER WHEELS/F1 MIS (09:32)
--- NOTE | 2017-05-03 09:34 | HHI.FF ---
Face to Face Verification Diagnosis: (1) Brain metastases (2) Elevated troponin (3) Metastatic breast cancer (4) Fall Physical Therapy Order: Evaluate and Treat, Improve ambulation, Strength and gait training Occupational Therapy Order: Evaluate and Treat, Improve ADL, Gross motor coordination, Fine motor coordination Home Health Nursing Order: Signs/symptoms of disease process Nursing assessment with vital signs Home Health Aide Order: To Assist In: Bathing and personal care, rope maker and meal prep I have seen patient Katey Madrigal on 05/03/17. My clinical findings support the need for the requested home health care services because: Ltd mobility - disease progression I certify that my clinical findings support that this patient is homebound because: Unsteady gait/balance Brian Panchal DO May 03, 2017 09:34
--- NOTE | 2017-05-03 09:36 | HHI.DS ---
Discharge Summary Admission Date Apr 30, 2017 at 18:52 Discharge Date: May 03, 2017 Admitting Diagnosis Near syncope/fall/brain metastases/elevated troponin (1) Fall ICD Code: W19.XXXA - Unspecified fall, initial encounter Diagnosis: Principal Status: Acute (2) Elevated troponin ICD Code: R74.8 - Abnormal levels of other serum enzymes Diagnosis: Secondary Status: Acute (3) Brain metastases ICD Code: C79.31 - Secondary malignant neoplasm of brain Diagnosis: Principal Status: Acute (4) Metastatic breast cancer ICD Code: C50.919 - Malignant neoplasm of unspecified site of unspecified female breast Diagnosis: Principal Procedures none Brief History - From Admission 71 years old female with history of breast cancer presented to the ED after she sustained a fall while she was leaving her chemotherapy session, patient think it could be due to her shoes stuck on the tile floor, but she's not totally sure , in ED she was found to have lytic lesion on the CT of the brain which was new for her, also her troponin was elevated, patient denied any chest pain short of breath, fever chills, she does have generalized weakness and fatigue she follow up with Dr. Thompson for her breast cancer chemotherapy treatment CBC/BMP: 05/01/17 0600 05/01/17 0600 Significant Findings Laboratory Tests Test 04/30/17 17:07 04/30/17 17:39 04/30/17 18:20 04/30/17 22:32 White Blood Count 2.4 TH/MM3 (4.0-11.0) Red Blood Count 3.49 MIL/MM3 (4.00-5.30) Hemoglobin 10.9 GM/DL (11.6-15.3) Hematocrit 33.8 % (35.0-46.0) Mean Platelet Volume 6.3 FL (7.0-11.0) Neutrophils (%) (Auto) 73.7 % (16.0-70.0) Lymphocytes # (Auto) 0.5 TH/MM3 (1.0-4.8) Albumin 3.0 GM/DL (3.4-5.0) Troponin I 0.22 NG/ML (0.02-0.05) 0.19 NG/ML (0.02-0.05) Urine Leukocyte Esterase TRACE (NEG) Activated Partial Thromboplast Time 18.3 SEC (24.3-30.1) Test 05/01/17 06:00 05/02/17 10:52 White Blood Count 2.1 TH/MM3 (4.0-11.0) Red Blood Count 2.98 MIL/MM3 (4.00-5.30) Hemoglobin 9.9 GM/DL (11.6-15.3) Hematocrit 29.2 % (35.0-46.0) Platelet Count 147 TH/MM3 (150-450) Neutrophils # (Auto) 1.4 TH/MM3 (1.8-7.7) Lymphocytes # (Auto) 0.5 TH/MM3 (1.0-4.8) Total Protein 6.0 GM/DL (6.4-8.2) Albumin 2.9 GM/DL (3.4-5.0) Calcium Level 8.0 MG/DL (8.5-10.1) Anion Gap 4 MEQ/L (5-15) Troponin I 0.07 NG/ML (0.02-0.05) Total Iron Binding Capacity 227 MCG/DL (250-450) Percent Iron Saturation 69.7 % (20-50) Vitamin B12 Level 1726 PG/ML (193-986) Imaging Last Impressions Brain MRI 05/02/17 0000 Signed Impressions: Service Date/Time: Tuesday, May 02, 2017 12:24 - CONCLUSION: Widespread bone lesions throughout the skull and in the upper cervical spine concerning for widespread metastatic disease. Rubén Vasquez MD Chest X-Ray 04/30/17 0884 Signed Impressions: Service Date/Time: Sunday, April 30, 2017 16:50 - CONCLUSION: No infiltrate seen. Fan Harris MD Tibia/Fibula X-Ray 04/30/17 4400 Signed Impressions: Service Date/Time: Sunday, April 30, 2017 15:51 - CONCLUSION: No evidence of recent bony injury. Fan Harris MD Knee X-Ray 04/30/17 7885 Signed Impressions: Service Date/Time: Sunday, April 30, 2017 15:51 - CONCLUSION: 1. Degenerative changes in the patellofemoral and medial compartment of the knee. 2. No evidence of recent bone injury. No radiographic evidence of the effusion. Fan Harris MD Head CT 04/30/17 1549 Signed Impressions: Service Date/Time: Sunday, April 30, 2017 17:32 - CONCLUSION: 1. Markedly abnormal appearance throughout the skull with numerous lytic lesions and multiple appearance suspicious for metastatic disease. The largest lesion in the left frontal parietal region has complete destruction of the external and internal table. 2. No acute findings in the brain. 3. Mild soft tissue swelling in the right supraorbital region. Fan Harris MD PE at Discharge GENERAL: PATIENT IS A 71 YEAR OLD FEMALE WITH ECCHYMOSIS AROUND RIGHT EYE ORBIT SKIN: Warm and dry. HEAD: Atraumatic. Normocephalic. EYES: Pupils equal and round. No scleral icterus. No injection or drainage. EOMI ENT: No nasal bleeding or discharge. Mucous membranes pink and moist. TONGUE MIDLINE NECK: Trachea midline. No JVD. SUPPLE CARDIOVASCULAR: Regular rate and rhythm. S1, S2 NO S3 OR S4 RESPIRATORY: No accessory muscle use. Clear to auscultation. Breath sounds equal bilaterally. GASTROINTESTINAL: Abdomen soft, non-tender, nondistended. Hepatic and splenic margins not palpable. MUSCULOSKELETAL: Extremities without clubbing, cyanosis, or edema. No obvious deformities. NEUROLOGICAL: Awake and alert. No obvious cranial nerve deficits. Motor grossly within normal limits. 4 out of 5 muscle strength in the arms and legs. Normal speech. PSYCHIATRIC: Appropriate mood and affect; insight and judgment normal. Hospital Course 71 years old female with history of breast cancer presented to the ED after she sustained a fall while she was leaving her chemotherapy session, patient think it could be due to her shoes stuck on the tile floor, but she's not totally sure , in ED she was found to have lytic lesion on the CT of the brain which was new for her, also her troponin was elevated, patient denied any chest pain short of breath, fever chills, she does have generalized weakness and fatigue she follow up with Dr. Thompson for her breast cancer chemotherapy treatment 2- Resting comfortably in bed No event overnight Denied chest and or short of breath No fever or chills 2- NO NEW COMPLAINTS ONCOLOGY WILL DC MRIS AND DC TO HOME TODAY [facility] SHE STATES THAT IS WHERE THEY DISCOVERED HER STAGE 4 BREAST CANCER REOCCURRENCE DC TO HOME TODAY 71 years old female with history of breast cancer presented with Status post fall possibly physical fall versus near syncope Increase troponin rule out non-STEMI--no intervention by cardiology New finding on CT had shown lytic lesions WITH metastasis to bone not brain Thrombocytopenia History of breast cancer STAGE 4 on chemotherapy DVT prophylaxis with SCD and Lovenox Plan: Full set of cardiac enzyme, appreciated cardiology consultation recommended no further workup Appreciate oncology consultation recommended MRI of the brain and neurology consultation to address the neuro affect of the bone destruction--MRI NOT REQUIRED PER ONCOLOGY Monitor CBC Lovenox for DVT prophylaxis Discharge Planning CLEARED BY ONCOLOGY DC TO HOME Discharge Planning HOPEFULLY DISCHARGE LATER TODAY Pt Condition on Discharge: Good Discharge Disposition: Disch w/ Home Health Serv Discharge Time: <= 30 minutes Discharge Instructions DIET: Follow Instructions for: Heart Healthy Diet Speech Therapy-Diet Recommends: Regular Activities you can perform: Regular-No Restrictions, Weight Bearing as Lasha Follow up Referrals: Oncology/Hematology - 1 Week with Luis Enrique Thompson MD PCP Follow-up - 2-3 Days with Kenny Chi MD New Medications: Walker with Front Wheels (Walker with Front Wheels) 1 Mis Mis EA .XX DIRECTED for GAIT INSTABILITY, #1 0 Refills Continued Medications: Calcium Carbonate (Calcium Oyster Shell) 1,250 Mg Tab 1250 MG PO DAILY for Calcium Supplement, TAB 0 Refills 1,250 mg calcium carbonate (500 mg elemental calcium) Cholecalciferol (Vitamin D-1000) 1,000 Unit Tab 4000 UNITS PO DAILY for Nutritional Supplement, #1 BOTTLE 0 Refills Cyanocobalamin (B12) 1,000 Mcg Tab 1000 MCG PO DAILY Gabapentin (Gabapentin) 100 Mg Cap 100 MG PO HS, #30 CAP 0 Refills Levothyroxine (Levothyroxine) 88 Mcg Tab 88 MCG PO DAILY for Thyroid, #30 TAB 0 Refills Omeprazole (Omeprazole) 20 Mg Tab 20 MG PO DAILY, #30 TAB 0 Refills Ondansetron (Zofran) 4 Mg Tab 4 MG PO Q8HR PRN for NAUSEA OR VOMITING, TAB 0 Refills Oxycodone (Oxycodone) 5 Mg Cap 5 MG PO Q8H PRN for PAIN, CAP 0 Refills Pravastatin (Pravastatin) 10 Mg Tab 10 MG PO DAILY for Cholesterol Management, #30 TAB 0 Refills Brian Panchal DO May 03, 2017 09:36
[2017-05-03 10:05] LABS: AUTOMATED NEUTROPHIL # 1.4 TH/MM3 (1.8-7.7); BASOPHIL % 0.6 % (0.0-2.0); EOSINOPHIL % 1.8 % (0.0-4.0); HEMATOCRIT 29.1 % (35.0-46.0); HEMOGLOBIN 10.3 GM/DL (11.6-15.3); LYMPH % 19.6 % (9.0-44.0); LYMPHOCYTE # 0.3 TH/MM3 (1.0-4.8); MEAN CELL VOLUME 96.3 FL (80.0-100.0); MEAN CORPUSCULAR HGB CONC 35.3 % (32.0-36.0); MEAN PLATELET VOLUME 7.3 FL (7.0-11.0); MONO % 1.6 % (0.0-8.0); NEUT % 76.4 % (16.0-70.0); PLATELET COUNT 150 TH/MM3 (150-450); RED BLOOD COUNT 3.03 MIL/MM3 (4.00-5.30); RED CELL DISTRIBUTION WIDTH 15.7 % (11.6-17.2); WHITE BLOOD COUNT 1.7 TH/MM3 (4.0-11.0)
[2017-05-03 10:21] LABS: CHLORIDE 104 MEQ/L (98-107); SODIUM (NA) 139 MEQ/L (136-145)
[2017-05-03 10:24] LABS: BICARBONATE 28.5 MEQ/L (21.0-32.0); CALCIUM 8.1 MG/DL (8.5-10.1); GLUCOSE,RANDOM 101 MG/DL (74-106); MAGNESIUM 2.3 MG/DL (1.5-2.5)
[2017-05-03 10:25] LABS: BLOOD UREA NITROGEN 13 MG/DL (7-18)
[2017-05-03 10:27] LABS: ALT (GPT) 14 U/L (10-53); AST (GOT) 23 U/L (15-37); CREATININE 0.51 MG/DL (0.50-1.00); GLOMERULAR FILTRATION RATE 119 ML/MIN (>89)
[2017-05-03 10:28] LABS: PHOSPHORUS 3.2 MG/DL (2.5-4.9)
[2017-05-03 10:29] LABS: TOTAL BILIRUBIN ADULT 0.6 MG/DL (0.2-1.0); TOTAL PROTEIN 6.2 GM/DL (6.4-8.2)
[2017-05-03 10:30] LABS: ALKALINE PHOSPHATASE 75 U/L (45-117)
[2017-05-03 11:12] LABS: BANDS 1 % (0-6); LYMPHOCYTES 19 % (9-44); MONOCYTES 3 % (0-8); NEUTROPHIL # MANUAL DIFF 1.3 TH/MM3 (1.8-7.7); POLYS (SEG NEUTROPHILS) 77 % (16-70)
[2017-05-03 11:13] LABS: OVALOCYTES 1+ (NORMAL)
[2017-05-03 12:00] VITALS: BP 114/69; PULSE 73; RESP 18; TEMP 97.8; O2SAT 96
[2017-05-03 14:02] LABS: FREE T4 1.03 NG/DL (0.76-1.46)
[2017-05-03 16:29] LABS: HEMOGLOBIN A1C 4.9 % (4.3-6.0)
== END 2017-05-03 14:10 | disposition home health service (06) | DRG 544 ==
LOC: PHED 14:49 → PHEDA 18:52 → PH3A 22:13
PROVIDERS: ADMIT Hospitalist; ATTEND Hospitalist
DX: C79.51 Secondary malignant neoplasm of bone (principal); D69.6 Thrombocytopenia, unspecified; D63.0 Anemia in neoplastic disease; I10 Essential (primary) hypertension; S00.11XA Contusion of right eyelid and periocular area, initial encounter; E03.9 Hypothyroidism, unspecified; I45.10 Unspecified right bundle-branch block; E78.5 Hyperlipidemia, unspecified; K21.9 Gastro-esophageal reflux disease without esophagitis; R74.8 Abnormal levels of other serum enzymes; W01.0XXA Fall on same level from slipping, tripping and stumbling without subsequent striking against object, initial encounter; Y92.531 Health care provider office as the place of occurrence of the external cause; Z17.0 Estrogen receptor positive status [ER+]; Z80.3 Family history of malignant neoplasm of breast; Z85.3 Personal history of malignant neoplasm of breast; Z90.11 Acquired absence of right breast and nipple; Z92.3 Personal history of irradiation
CPT/HCPCS: 70450; 70553; 71045; 73564; 73590; 80053; 81001; 82550; 82607; 82728; 82747; 82948; 83036; 83540; 83550; 83735; 84100; 84439; 84443; 84484; 85007; 85025; 85027; 85610; 85730; 93005; 99285; A9579; J1650